=== PATIENT | female | born 1950 | race Caucasian/White ===

== ENCOUNTER 2019-10-31 07:54 | Outpatient (CLI) | payer MEDICARE, SELFPAY ==
[2019-10-31 09:21] LABS: Add Urine Microscopic? YES; Appearance Urine Clear (Clear); Bacteria Urine Trace /hpf; Bilirubin Urine Negative (Negative); Blood Urine Negative (Negative); Color Urine Yellow (Yellow); Glucose Urine UA Negative (Negative); Ketones Urine Negative (Negative); Leukocyte Esterase Ur Negative LEU/UL (Negative); Mucus Urine Rare /lpf; Nitrate Urine Negative (Negative); Protein Urine Negative (Negative); RBC Urine 0-2 /hpf (0-2); Specific Grav Ur 1.026 (1.001-1.035); Squamous Epithelial Cell Urine Many /hpf (Few); Urobilinogen Urine Negative mg/dL (<2.0); WBC Urine 0-3 /hpf
[2019-10-31 09:28] LABS: Prothrombin Time 12.8 Seconds (11.1-14.7)
[2019-10-31 09:29] LABS: Partial Thromboplastin Time 25.6 SECONDS (22.3-36.8)
[2019-10-31 09:39] LABS: Hemoglobin A1C 5.6 % (<5.7)
[2019-10-31 11:02] LABS: Urine Cotinine NEGATIVE
== END 2019-10-31 07:55 | disposition home or self-care (01) ==
LOC: ANHSURGERY 07:59
PROVIDERS: PCP Family Medicine; Visit Provider Orthopaedic Surgery
DX: M17.11 Unilateral primary osteoarthritis, right knee (principal)
CPT/HCPCS: 36415; 80307; 81001; 83036; 85610; 85730; 86850; 86900; 86901; 87081

== ENCOUNTER 2019-11-03 07:27 | Outpatient (CLI) | payer MEDICARE, SELFPAY ==
--- NOTE | 2019-11-03 | EST_ITS ---
Patient Info Name: Светлана Hernández Age: 69 years : 1950 Gender: Female Ht: 62 in Wt: 173 lbs BSA: 1.88 m2 Exam Date: 11/03/2019 9:13 AM Exam Location: [facility] Stress Patient Status: Outpatient Admit Date: 11/03/2019 Staff Ordering Physician: Leeanna Salinas MD Attending Provider: Leeanna Salinas MD Exercise Technologist: Cesilia David RD Exercise Physician: Nicolas Giordano DO Exam Type: CA stress dai w NM Study Info A regadenoson stress test was performed. Summary 1. 1. Negative lexiscan stress test for ischemic ST changes by ECG criteria. 2. 2. Baseline hypertension. 3. 3. Nuclear scan to follow and will be reported separately. Please correlate with it. 4. 4. Patient informed of the above results. Protocol: Lexiscan Stress ECG Details Stage: REST Duration (min): 8 min : 11 sec HR (bpm): 64 SBP (mmHg): 142 DBP (mmHg): 93 Stage: REST Duration (min): 23 min : 23 sec HR (bpm): 69 SBP (mmHg): 142 DBP (mmHg): 93 Stage: STAGE 1 Duration (min): 1 min : 0 sec HR (bpm): 103 SBP (mmHg): 153 DBP (mmHg): 106 Stage: RECOVERY Duration (min): 1 min : 0 sec HR (bpm): 106 SBP (mmHg): 162 DBP (mmHg): 103 Stage: RECOVERY Duration (min): 2 min : 0 sec HR (bpm): 94 SBP (mmHg): 162 DBP (mmHg): 103 Stage: RECOVERY Duration (min): 3 min : 0 sec HR (bpm): 96 SBP (mmHg): 142 DBP (mmHg): 84 Stage: RECOVERY Duration (min): 3 min : 4 sec HR (bpm): 97 SBP (mmHg): 142 DBP (mmHg): 84 Rest HR: 69 bpm Peak HR: 109 bpm Rest Sys BP: 142 mmHg Peak Sys BP: 162 mmHg Max Pred HR: 153 bpm % Max Pred HR: 71 % Target HR: 130 bpm Max RPP: 17,658 bpm*mmHg Termination Reason: Completed protocol Cardiac Symptoms: Weakness. Stomach discomfort. Total Time: 1 min : 0 sec Rest Perez BP: 93 mmHg Peak Perez BP: 103 mmHg Total Dose: 0.4 mg Resting ECG Sinus rhythm, RBBB, LPFB. Stress ECG No ST changes. Arrhythmias None. Report Signatures
--- NOTE | ~2019-11-03 | NM_ITS ---
EXAMINATION: NM dai stress w perfusion DATE: 11/03/2019 10:25 INDICATION: Shortness of breath and hyperlipidemia. Preoperative assessment. TECHNIQUE: Rest images were obtained following intravenous administration of 10.1 mCi Tc99m tetrofosm in (Myoview). The patient was infused intravenously with Lexiscan (Regadenoson). Then, 28.2 mCi Tc99m tetrofosmin (Myoview) was administered intravenously, and stress images were obtained. Data was francisco nstructed into short axis and horizontal and vertical long axis SPECT images. Gated SPECT images were also obtained. COMPARISON: None. FINDINGS: There is no definite reversible or fixed perfusion abnormality to suggest ischemia or infar ction. There is normal left ventricular chamber size, wall motion and ejection fraction. Left ventr icular ejection fraction measures >70%. IMPRESSION: 1. Normal myocardial perfusion at rest and during stress. 2. Left ventricular ejection fraction measuring >70%. Reviewed, dictated and finalized at location A.
== END 2019-11-03 07:28 | disposition home or self-care (01) ==
LOC: ANHCARD 07:31
PROVIDERS: PCP Family Medicine; Visit Provider Family Medicine
DX: E78.2 Mixed hyperlipidemia (principal); I10 Essential (primary) hypertension; R07.89 Other chest pain; Z01.812 Encounter for preprocedural laboratory examination
CPT/HCPCS: 78452; 93017; A9502; J2785

== ENCOUNTER 2019-11-07 01:03 | Outpatient (CLI) | payer MEDICARE, SELFPAY ==
[2019-11-07 19:20] LABS: SARS-CoV-2 RNA PCR Negative
== END 2019-11-07 01:04 | disposition home or self-care (01) ==
LOC: ANHCOVIDDT 01:03
PROVIDERS: PCP Family Medicine; Visit Provider Orthopaedic Surgery
DX: Z01.812 Encounter for preprocedural laboratory examination (principal); Z11.59 Encounter for screening for other viral diseases
CPT/HCPCS: 87635; C9803; U0003

== ENCOUNTER 2019-11-29 08:58 | Outpatient (CLI) | payer MEDICARE, SELFPAY ==
[2019-11-29 09:30] LABS: Add Urine Microscopic? YES; Appearance Urine Clear (Clear); Bilirubin Urine Negative (Negative); Blood Urine Negative (Negative); Color Urine Yellow (Yellow); Glucose Urine UA Negative (Negative); Ketones Urine Negative (Negative); Leukocyte Esterase Ur 2+ LEU/UL (Negative); Mucus Urine Rare /lpf; Nitrate Urine Negative (Negative); Protein Urine 1+ mg/dL (Negative); RBC Urine 0-2 /hpf (0-2); Specific Grav Ur 1.025 (1.001-1.035); Squamous Epithelial Cell Urine Many /hpf (Few); Urobilinogen Urine Negative mg/dL (<2.0)
== END 2019-11-29 08:59 | disposition home or self-care (01) ==
PROVIDERS: PCP Family Medicine; Visit Provider Orthopaedic Surgery
DX: M17.0 Bilateral primary osteoarthritis of knee (principal)
CPT/HCPCS: 36415; 81001; 86850; 86900; 86901

== ENCOUNTER 2019-12-05 00:24 | Outpatient (CLI) | payer MEDICARE, SELFPAY ==
[2019-12-05 20:23] LABS: SARS-CoV-2 RNA PCR Negative
== END 2019-12-05 00:25 | disposition home or self-care (01) ==
LOC: ANHCOVIDDT 00:24
PROVIDERS: PCP Family Medicine; Visit Provider Orthopaedic Surgery
DX: Z01.812 Encounter for preprocedural laboratory examination (principal); Z20.828 Contact with and (suspected) exposure to other viral communicable diseases
CPT/HCPCS: 87635; C9803; U0003

== ENCOUNTER 2019-12-07 01:35 | Day surgery (SDC) | payer MEDICARE, SELFPAY ==
[2019-10-31 08:16] VITALS: BMI 31.6
[2019-10-31 08:59] VITALS: BP 132/71; PULSE 65; RESP 18; TEMP 37.1; O2SAT 98
[2019-11-23 12:02] VITALS: BMI 31.6
--- NOTE | 2019-12-06 12:40 | WPDANESEPPF ---
Anes - Initial Pre Proc Eval Procedure: Operation Date: 12/07/19 13:00 Proposed Procedures p Right Total Knee Arthroplasty With Patella Resurfacing - Paulo Conklin MD Date/Time: 12/06/19 12:40 Surgeon: Paulo Conklin MD Pre Op Diagnosis: DJD Right Knee Patient Data Age: 69 Gender: F Height: 1.57 m Weight: 78.6 kg Last Vital Signs Temp 37.1 C 10/31/19 08:59 Pulse 65 10/31/19 08:59 Resp 18 10/31/19 08:59 BP 132/71 10/31/19 08:59 Pulse Ox 98 10/31/19 08:59 Allergies Allergy/AdvReac Type Severity Reaction Status Date / Time No Known Allergies Allergy Verified 12/07/19 09:35 Home Medications Medication Instructions Recorded Confirmed Type diclofenac sodium 75 mg 75 mg PO BID #180 tablet 03/16/19 12/07/19 Rx tablet,delayed release cholecalciferol (vitamin D3) 25 2,000 unit PO BID 03/23/19 12/07/19 History mcg (1,000 unit) capsule calcium carbonate 500 mg calcium 1,200 mg PO DAILY 04/18/19 12/07/19 History (1,250 mg) tablet glucosamine sulf dipotassium Cl 1 tablet PO BID tablet 04/18/19 12/07/19 History 750 mg-chondroitin sulf 600 mg tablet multivitamin 1 tablet PO DAILY 04/18/19 12/07/19 History vit C 250 mg-E 200 unit-zinc 40 1 tablet PO BID 04/18/19 12/07/19 History mg-copper 1 la-pdpyyl-butvrz capsule quinapril 20 mg tablet 20 mg PO DAILY #90 tablet 09/26/19 12/07/19 Rx acetaminophen [Tylenol Arthritis 650 mg PO HS PRN 10/31/19 12/02/19 History Pain] famotidine-Ca carb-mag hydrox 1 tablet PO DAILY 10/31/19 12/07/19 History [Pepcid Complete] rosuvastatin 40 mg PO HS 10/31/19 12/07/19 History pantoprazole 40 mg tablet,delayed 20 mg PO QAM #90 tablet 11/08/19 12/07/19 Rx release aspirin 325 mg PO HS 11/23/19 12/07/19 History Bactrim DS 800 mg-160 mg tablet 1 tablet PO Q12H #14 tablet NS 11/29/19 12/07/19 Rx ezetimibe 10 mg tablet 10 mg PO HS #90 tablet 12/05/19 12/07/19 Rx Patient hx anesthesia problems: none Family hx anesthesia problems: none [facility] Social History Social History Smoking status: Never smoker Second hand tobacco smoke exposure: No Smoking end date: 04/20/99 Additional smoking assessment comments: DENIES ANY FORM OF TOBACCO USE Alcohol intake: current Drinks per week: 2 Alcohol use details: VODKA Substance use: never Living arrangements: with family Spiritual care concerns: No Anes - Eval Final PreProcedure Day of Procedure 12/06/19 12:40 Patient weight: obese Heart: regular rate and rhythm Lungs: clear to auscultation and normal air movement Airway: Mallampati scale class II Neurological: alert and oriented Last oral intake: >/= 8 hours ASA classification: III Emergent: no Anesthetic plan: proceed Anesthesia type and monitoring: general ETT Informed Consent: The patient's anesthetic plan and its attendant risks and benefits were discussed with the patient/family/POA. Questions were solicited and answers provided to the satisfaction of the patient/family/POA.
[2019-12-07] VITALS (14 sets, daily range): BP systolic 100–124; BP diastolic 59–71; PULSE 59–78; RESP 12–18; TEMP 36–36.7; O2SAT 91–100
--- NOTE | ~2019-12-07 | XR_ITS ---
EXAMINATION: XR knee RT 2V DATE: 12/07/2019 12:52 INDICATION: Right total knee arthroplasty. Postop. TECHNIQUE: 2 views of right knee were obtained. COMPARISON: Right knee radiographs 10/07/2019 FINDINGS: There is a total right knee arthroplasty without patellar resurfacing in near-anatomic alig nment. No fracture. There is gas in the knee joint and soft tissues, consistent with recent surgery. Anterior skin mickey are noted. IMPRESSION: 1. Total right knee arthroplasty in near-anatomic alignment. Reviewed, dictated and finalized at location A.
--- NOTE | 2019-12-07 07:18 | WPDHPUPDATE1 ---
History and Physical Update Update Date/Time: 12/07/19 07:18 History and Physical has been reviewed, including an updated exam of the patient. There are NO changes in the patient's condition. Risks, benefits, and alternatives have been discussed and questions answered. Patient agrees to proceed with procedure.
[2019-12-07] MEDS: CELECOXIB 200 MG CAPSULE PO ×2 (09:20→17:24)
[2019-12-07] MEDS: ACETAMINOPHEN 500 MG TABLET 1000 MG PO ×2 (09:20→15:09)
[2019-12-07] MEDS: LACTATED RINGERS 1,000 ML 30 ML IV CONT ×2 (09:25→12:37)
[2019-12-07] MEDS: TRANEXAMIC ACID 1,000MG/ISO100 1,000 MG/100 ML BAG 200 MG IVPB (09:30)
--- NOTE | 2019-12-07 10:05 | WPDANESPNB ---
Anes - Peripheral Nerve Block Date/Time: 12/07/19 10:05 I have discussed with the patient/family/POA the placement of a peripheral nerve block for post-operative pain management, including associated risks, benefits, complications, and side effects. Alternative methods of post-operative analgesia were detailed. Questions were solicited and answers provided to the satisfaction of the patient/family/POA. Time-Out: A pre-procedural Time-Out was completed immediately before starting the procedure and confirmed: Patient Identification, Site, Procedure, Patient Position and the Availability of Requisite Equipment. Clinical Indications: Acute post-operative pain management requested by the operative surgeon. Nerve Block Insertion Note Anes-nerve block: adductor canal right Patient position: supine Skin prep: chlorhexidine Needle: 22 gauge, stimulating, insulated echogenic needle. Needle length: 80 mm Technique: ultrasound Technique comment: in plane Injectate: bupivacaine 0.5% with epi 5 mcg/ml (30cc) Observations: tolerated well Complications: none Procedure start time:: 1015 Procedure end time:: 1020
[2019-12-07] MEDS: ceFAZolin 2 GM/D5W 50 ML 2 GM/50 ML BAG IVPB ×2 (10:21→17:23)
[2019-12-07] MEDS: GENTAMICIN BONE CEMENT REFOBACIN 1 EACH TOPICAL (11:12)
[2019-12-07] MEDS: TRANEXAMIC ACID 1,000 MG/10 ML AMPUL 1000 MG IV PUSH (12:00)
--- NOTE | 2019-12-07 12:51 | SUR.PHASEI ---
1250 2 VIEWS OF XRAYS TAKEN OF RT KNEE.
--- NOTE | 2019-12-07 13:13 | PM.OP ---
Procedure Note - Brief Procedure Note - Brief Date of procedure: 12/07/19 Pre-op diagnosis: DJD Right Knee Post-op diagnosis: same Procedure performed: R TKA Anesthesia: GETA Surgeon: Paulo Conklin MD Estimated blood loss (mL): 100 Complications: No immediate complications Condition: stable Disposition: PACU
--- NOTE | 2019-12-07 14:20 | ADMGEN ---
This patient, Светлана Hernández, was admitted to Medical Room 258-. Patient/family oriented to hospital policies and general routines including ID bracelet, bed and alarms, visiting hours, pain management, procedures, bathroom and other care routines, personal items, smoking policy, room service/diet, and visiting hours. Valuables list has been completed. Information on how to activate the Rapid Response Team has been discussed. Patient/Family are encouraged to report perceived risks to care and to ask questions if they do not understand what they are told or what they should do.
[2019-12-07 15:06] LABS: Estimated CRCL calculation 65 ml/min; Estimated Glomerular Filt Rate > 60
[2019-12-07] MEDS: SODIUM CHLORIDE 0.9% IV 1,000 ML 125 ML IV CONT (15:07)
--- NOTE | 2019-12-07 15:40 | OP_ITS ---
DATE OF PROCEDURE: 12/07/2019 PREOPERATIVE DIAGNOSIS: Right knee severe degenerative joint disease. POSTOPERATIVE DIAGNOSIS: Right knee severe degenerative joint disease. PROCEDURE: Right total knee arthroplasty. ANESTHESIA: General. COMPLICATIONS: None. INDICATIONS: This is a 69-year-old female with severe tricompartmental DJD and severe pain. She was indicated for right total knee arthroplasty. DESCRIPTION OF PROCEDURE: The patient was taken to the operating room in stable condition and placed in supine position. General anesthesia was induced and then the right lower extremity was prepped and draped sterilely from the toes to the thigh. A midline skin incision made. Medial parapatellar arthrotomy was made. Patella was everted. She had severe arthrosis to the patella and the patellofemoral joint. She had exostoses, multiple, around the patella. The patella was too thin for an implant and this was quite noticeable at this point, so the patella was trimmed of its osteophytes and then everted and then an IM jessee was placed in the femur. A distal femoral cut was made at 5 degrees of valgus and then the knee was sized to a 60 knee and the cutting block was placed in line with Whitesides line and with the transepicondylar axis and anterior, posterior, and chamfer cuts were made to the femur. IM jessee was placed in tibia. A transtibial cut was made removing approximately 10 mm of bone from the high side. The tibia then was planed to form a smooth surface and then posterior osteophytes were removed from the femur. A #71 trial tibial component was placed in alignment with the 1/3rd medial aspect of the tibial tubercle and then a 65 femoral trial was placed and then a 10 CR poly trial was placed. The knee came out to full extension. The knee was eventually well balanced and had good varus valgus stress after ligament balancing was performed. There was good anterior-posterior stability, and the patella tracked without any tilt. There was no excessive rollback in flexion as well. The trial instrumentation was removed and then a Biomet 71 tibial component and a 65 femoral component both cemented into place and then a 10 CR poly component was locked into place. The knee came out to full extension until the cement was hardened, and then the knee was tested. Peripheral cement was removed from the implant and then the knee was found to have full extension. No abnormal tracking of the kneecap. There was good AP stability as well. There was good varus valgus stability as well. The patella tracked without any tilt. The tourniquet was deflated. The bleeders were cauterized. The deep fascial layers were approximated with #1 Vicryl suture subcutaneous tissues with 2-0 Vicryl and the skin with mickey. Wound was washed, placed sterile dressing. The patient was then extubated and sent to Recovery. Bryan I MT: Kellie
[2019-12-07] MEDS: DOCUSATE SODIUM 100 MG CAPSULE PO (17:24)
--- NOTE | 2019-12-07 18:18 | PM.IMCN ---
Assessment and Plan Assessment and plan (1) S/P total knee arthroplasty: Code(s): Z96.659 - Presence of unspecified artificial knee joint Status: Acute Assessment and Plan: postop care per Dr. Conklin. DVT prophylaxis per Dr. Conklin. The patient has an Constantine wrap to the right and bilateral SCDs. She is on a daily aspirin. Pain management per Dr. Conklin. She did have a nerve block and is not having any discomfort at this time. She has oxycodone as well. (2) Essential (primary) hypertension: Code(s): I10 - Essential (primary) hypertension Status: Chronic Assessment and Plan: Lisinopril oral has been continued . Please continue to monitor basic metabolic panel. (3) Mixed hyperlipidemia: Code(s): E78.2 - Mixed hyperlipidemia Status: Chronic Assessment and Plan: Continue with Crestor. And Zetia (4) Chronic GERD: Code(s): K21.9 - Gastro-esophageal reflux disease without esophagitis Status: Acute Assessment and Plan: Continue with Pepcid. HPI Data of Consult Consult date: 12/07/19 Requesting Physician: Paulo Conklin MD Primary Care Provider: Leeanna Salinas MD Consult Narrative Narrative: Светлана Hernández is a 69 year old female Who has severe tricompartmental degenerative joint disease in her right knee this would causing her severe pain. She has had injections in her shoulder before but never and her knee. She indicated for right total knee arthroplasty with patellar resurfacing. See the operative note. I reviewed a procedure note that was brief note. From Dr. Conklin 0 0 it stated that she had a right total knee arthroplasty. Had no complications. Her dressing to the right knee is dry and intact without any drainage. She is not having any discomfort at this time from what I could tell the patient had a nerve block. She has not been up out of bed yet. See operative report. This is a consultation from Dr. Conklin. I spent approximately 35 minutes with the patient. The date of service is 12/07/2019 Review of Systems Review of Systems: All systems reviewed & are unremarkable except as noted in HPI and below Constitutional: Constitutional: Reports as per HPI and Reports no additional constitutional complaints Eyes: Eyes: Reports as per HPI and Reports no additional eye complaints ENT: Reports system reviewed and no additional complaints, except as documented and Reports Normal hearing present Cardiovascular: Cardiovascular: Reports no additional cardiovascular complaints Respiratory: Respiratory: Reports no additional respiratory complaints and Reports no additional respiratory complaints Gastrointestinal: Gastrointestinal: Reports as per HPI and Reports no additional gastrointestinal complaints Musculoskeletal: Musculoskeletal: Reports no additional musculoskeletal complaints Integumentary/Breasts: Skin/Breast: Reports system reviewed and no additional complaints, except as docu and Reports as per HPI Neurologic: Reports system reviewed and no additional complaints, except as documented, Reports as per HPI and Reports Normal hearing present Psychiatric: Psychiatric: Reports no additional psychiatric complaints and Reports as per HPI Endocrine: Endocrine: Reports no additional endocrine complaints Hematologic/Lymphatic: Hematologic/Lymphatic: Reports no additional hematologic/lymphatic complaints Allergic/Immunologic: Allergic/Immunologic: Reports no additional allergic/immunologic complaints [facility] Past Medical History Medical History (Updated 12/07/19 @ 18:25 by Kate Watkins NP) Abnormal CT of the abdomen ventral hernia Abrasion of toe, left which turned into cellulitis and received approximately 2 weeks of antibiotics. Adverse drug effect Sandoval's esophagus without dysplasia Bilateral primary osteoarthritis of knee Chondromalacia patellae, unspecified knee Chronic GERD Colon polyp (~07/15/18) Dege
[2019-12-07] MEDS: EZETIMIBE 10 MG TABLET PO (20:39)
[2019-12-07] MEDS: ROSUVASTATIN 10 MG TABLET 40 MG PO (20:40)
[2019-12-07] MEDS: FAMOTIDINE 20 MG TABLET PO (20:41)
[2019-12-08] MEDS: ceFAZolin 2 GM/D5W 50 ML 2 GM/50 ML BAG IVPB ×2 (01:23→09:31)
[2019-12-08 03:56] VITALS: BP 100/65; PULSE 58; RESP 12; TEMP 37.1; O2SAT 99
[2019-12-08 05:50] LABS: Basophils Percent Auto 0.1 % (0.2-1.2); Eosinophils Percent Auto 0.1 % (0-4.4); Hematocrit 31.2 % (37.0-47.0); Hemoglobin 9.9 g/dL (12.0-15.0); Immature Granulocyte Absolute 0.03 K/mm3 (0.00-0.031); Immature Granulocyte Percent A 0.4 % (0-0.5); Lymphocytes Absolute Auto 0.63 K/mm3 (0.9-3.2); Lymphocytes Percent Auto 7.4 % (18.3-44.2); Mean Corpuscular HGB Conc 31.7 g/dl (32-36); Mean Corpuscular Hemoglobin 31.6 pg (26-34); Mean Corpuscular Volume 99.7 fl (80-100); Monocytes Absolute Auto 0.9 K/mm3 (0.1-0.6); Monocytes Percent Auto 10.4 % (2.6-8.5); Neutrophils Absolute Auto 6.9 K/mm3 (1.3-6.7); Neutrophils Percent Auto 81.6 % (45.5-73.1); Platelet Count Result 186 k/mm3 (150-375); Red Blood Count 3.13 M/mm3 (4.2-5.4); Red Cell Distribution Width 12.5 % (11.5-14.5); White Blood Count 8.5 K/mm3 (4.5-10.0)
[2019-12-08 06:06] LABS: Potassium 4.5 mmol/L (3.4-5.0)
[2019-12-08 06:08] LABS: Anion Gap 4 mmol/L (8-16); Blood Urea Nitrogen 12 mg/dL (7-17); Calcium 9.1 mg/dL (8.4-10.2); Carbon Dioxide 26 mmol/L (22-30); Chloride 107 mmol/L (98-107); Estimated CRCL calculation 65 ml/min; Estimated Glomerular Filt Rate > 60; Glucose 107 mg/dL (65-105); Sodium 137 mmol/L (137-145)
[2019-12-08] MEDS: ASPIRIN 325 MG ENTERIC TABLET 650 MG PO (08:17)
[2019-12-08] MEDS: CALCIUM CARBONATE (OSCAL) 500 MG TABLET 1000 MG PO (08:17)
[2019-12-08] MEDS: FAMOTIDINE 20 MG TABLET PO (08:18)
[2019-12-08] MEDS: lisinopriL 20 MG TABLET PO (08:18)
[2019-12-08] MEDS: DOCUSATE SODIUM 100 MG CAPSULE PO ×2 (08:18→16:59)
[2019-12-08] MEDS: CELECOXIB 200 MG CAPSULE PO ×2 (09:28→16:59)
--- NOTE | 2019-12-08 09:36 | PM.PNORT ---
Progress Note: A&P Assessment and Plan (1) S/P total knee arthroplasty: Qualifiers: Laterality: right Qualified Code(s): Z96.651 - Presence of right artificial knee joint Code(s): Z96.659 - Presence of unspecified artificial knee joint Status: Acute Assessment and Plan: POD #1: Right TKA Continue PT/OT. WBAT. Walker. Fall Risk. Continue DVT prophylaxis. Reinforced incentive spirometry use. SCDs. Ice knee. No pillows under knee. Continue pain control. Dispo: Home with home health, likely today, if tolerating PT/OT and medically cleared. Subjective Subjective Date/Time Seen: 12/08/19 0830 POD#1: RIGHT TKA No complaints. Working with PT/OT in the [facility]. Walking around the unit without difficulty. Wants to go home today. Review of Systems Review of Systems: All systems reviewed & are unremarkable except as noted in HPI and below Constitutional: Constitutional: Denies fever(s) and Denies headache(s) ENT: Denies headache(s) Cardiovascular: Cardiovascular: Denies chest pain, Denies diaphoresis, Denies palpitations and Denies dyspnea Respiratory: Respiratory: Denies dyspnea Gastrointestinal: Gastrointestinal: Denies abdominal pain, Denies constipation, Denies nausea and Denies vomiting Genitourinary: Genitourinary: Reports nocturia and Denies dysuria Musculoskeletal: Musculoskeletal: Reports arthralgias (Right Knee ) and Reports joint swelling (Right Knee ) Neurologic: Denies headache(s) Endocrine: Endocrine: Denies palpitations Exam Const: General: comfortable and no acute distress Resp: Effort & Inspection: normal respiratory effort Cardio: Rate: regular rate Rhythm: regular rhythm GI: GI Palp: Yes Soft to palpation, No Tenderness to palpation present (GI) and No Guarding due to palpation present (GI) Skin: Wounds: wounds noted Other: Incision c/d/i. No surrounding redness/warmth. No hematoma. Mild ecchymosis. No wound dehiscence Neuro: Cognition (Neuro): normal cognition Other: NV intact aside from block. Moves toes. Sensation intact to light touch. +ankle dorsiflexion/plantarflexion. 2+ pedal pulses. Extrem: Right upper extremity: normal to inspection, full ROM and normal capillary refill Left upper extremity: normal to inspection, full ROM and normal capillary refill Right lower extremity: normal to inspection, full ROM (ROM limited due to recent surgical intervention ) and knee Details: tenderness (diffuse, mild ) and swelling (diffuse, mild ) Left lower extremity: normal to inspection Psych: Mental Status: mental status grossly normal Objective Data Vital Signs Vital Signs: Vital Signs - 24 hr 12/07/19 12:37 12/07/19 12:50 12/07/19 13:05 Temperature 36.0 C L Pulse Rate 74 72 78 Respiratory Rate 14 12 12 Blood Pressure 111/59 L 114/70 112/71 Pulse Oximetry 99 98 100 12/07/19 13:20 12/07/19 13:35 12/07/19 13:50 Temperature Pulse Rate 73 70 69 Respiratory Rate 12 12 16 Blood Pressure 105/68 108/67 114/71 Pulse Oximetry 92 91 99 12/07/19 14:05 12/07/19 14:25 12/07/19 14:40 Temperature 36.2 C L 36.4 C L Pulse Rate 64 74 71 Respiratory Rate 12 18 16 Blood Pressure 110/71 122/70 122/70 Pulse Oximetry 97 98 97 12/07/19 15:10 12/07/19 16:10 12/07/19 19:56 Temperature 36.3 C L 36.4 C 36.7 C Pulse Rate 59 L 61 65 Respiratory Rate 18 16 18 Blood Pressure 116/71 111/59 L 105/60 Pulse Oximetry 96 96 98 12/07/19 23:11 12/08/19 03:56 Temperature 36.5 C 37.1 C Pulse Rate 64 58 L Respiratory Rate 16 12 Blood Pressure 100/65 100/65 Pulse Oximetry 96 99 Intake/Output Intake/Output: Intake & Output 12/05/19 12/06/19 12/07/19 12/08/19 23:59 23:59 23:59 23:59 Intake Total 1093 550 Output Total 550 2400 Balance 543 -1850 Meds/Results Medications: Active Medications Generic Name Dose Route Start Last Admin Trade Name Nury PRN Reason Stop Dose Admin Acetaminophen 1,000 mg 12/07/19 14:11 12/07/19 15
[2019-12-08 10:00] VITALS: BP 95/53; PULSE 61; RESP 14; TEMP 36.3; O2SAT 98
--- NOTE | 2019-12-08 11:42 | PM.IMPN ---
Progress Note: A&P Assessment and Plan (1) S/P total knee arthroplasty: Qualifiers: Laterality: right Qualified Code(s): Z96.651 - Presence of right artificial knee joint Code(s): Z96.659 - Presence of unspecified artificial knee joint Status: Acute Assessment and Plan: -----patient is doing well with physical therapy and is expected to discharge later today after she master's stairs. She is to continue with ortho is recommendations and physical therapy. (2) Essential (primary) hypertension: Code(s): I10 - Essential (primary) hypertension Status: Chronic Assessment and Plan: ------last blood pressure 100/65. No dizziness or lightheadedness. Continue lisinopril at discharge L (3) Mixed hyperlipidemia: Code(s): E78.2 - Mixed hyperlipidemia Status: Chronic Assessment and Plan: ------- Continue with Crestor and Zetia (4) Chronic GERD: Code(s): K21.9 - Gastro-esophageal reflux disease without esophagitis Status: Acute Assessment and Plan: ------ Continue with Pepcid. Time Spent With Patient Time with patient: 25 - 35 minutes Subjective Date/time seen: 12/08/19 11:42 Interval history: Pt is a 69-year-old female here for elective left knee replacement. Patient was seen today and doing well. She did work physical therapy without much pain. She is eating and drinking well. She has not had a bowel movement. She further denies chest pain, shortness of breath, calf pain, nausea, vomiting, fevers or chills. Review of Systems Review of Systems: All systems reviewed & are unremarkable except as noted in HPI and below Exam Narrative: Exam Narrative: General: Well developed well nourished patient in NAD HEENT: normocephalic Neck: supple Neuro: Alert and oriented x4 CV:RRR Resp:CTA Abd: Soft, non distended. No pain to palpation. Positive bowel sounds Extremities: Left leg with bandage and Constantine wrap applied. No excessive erythema, swelling, or bleeding noted in the area. Sensation and pulses intact. Objective Data Vital Signs Vital Signs: Vital Signs - 24 hr 12/07/19 12:37 12/07/19 12:50 12/07/19 13:05 Temperature 96.8 F L Pulse Rate 74 72 78 Respiratory Rate 14 12 12 Blood Pressure 111/59 L 114/70 112/71 Pulse Oximetry 99 98 100 12/07/19 13:20 12/07/19 13:35 12/07/19 13:50 Temperature Pulse Rate 73 70 69 Respiratory Rate 12 12 16 Blood Pressure 105/68 108/67 114/71 Pulse Oximetry 92 91 99 12/07/19 14:05 12/07/19 14:25 12/07/19 14:40 Temperature 97.1 F L 97.5 F L Pulse Rate 64 74 71 Respiratory Rate 12 18 16 Blood Pressure 110/71 122/70 122/70 Pulse Oximetry 97 98 97 12/07/19 15:10 12/07/19 16:10 12/07/19 19:56 Temperature 97.3 F L 97.6 F 98.1 F Pulse Rate 59 L 61 65 Respiratory Rate 18 16 18 Blood Pressure 116/71 111/59 L 105/60 Pulse Oximetry 96 96 98 12/07/19 23:11 12/08/19 03:56 Temperature 97.7 F 98.8 F Pulse Rate 64 58 L Respiratory Rate 16 12 Blood Pressure 100/65 100/65 Pulse Oximetry 96 99 Intake/Output Intake/Output: Intake & Output 12/05/19 12/06/19 12/07/19 12/08/19 23:59 23:59 23:59 23:59 Intake Total 1093 550 Output Total 550 2400 Balance 543 -1850 Meds/Results Medications: Active Medications Generic Name Dose Route Start Last Admin Trade Name Freq PRN Reason Stop Dose Admin Acetaminophen 1,000 mg 12/07/19 14:11 12/07/19 15:09 Tylenol Tablet PO 1,000 mg Q6H PRN Administration Mild Pain (1-3) Aspirin 650 mg 12/08/19 09:00 12/08/19 08:17 Aspirin Ec PO 650 mg DAILY DEBORA Administration Calcium Carbonate 1,000 mg 12/08/19 09:00 12/08/19 08:17 Oscal 500 Mg PO 1,000 mg DAILY DEBORA Administration Celecoxib 200 mg 12/07/19 17:00 12/08/19 09:28 Celebrex PO 200 mg BIDWM DEBORA Administration Diazepam 5 mg 12/07/19 14:11 Valium Po PO Q8H PRN Spasms Diphenhydramine
[2019-12-08 14:56] VITALS: BP 92/74; PULSE 70; RESP 14; TEMP 36.4; O2SAT 100
--- NOTE | 2019-12-08 16:09 | PM.DS ---
DS: Admitting Diagnosis Admitting Diagnosis Admitting Diagnosis: DJD Right Knee DS: Discharge Diagnosis Discharge Diagnosis (1) S/P total knee arthroplasty: Qualifiers: Laterality: right Qualified Code(s): Z96.651 - Presence of right artificial knee joint Code(s): Z96.659 - Presence of unspecified artificial knee joint Status: Acute Assessment and Plan: POD #1: Right TKA Continue PT/OT. WBAT. Walker. Fall Risk. Continue DVT prophylaxis. Reinforced incentive spirometry use. SCDs. Ice knee. No pillows under knee. Continue pain control. Dispo: Home with home health, likely today, if tolerating PT/OT and medically cleared. (2) Bilateral primary osteoarthritis of knee: Code(s): M17.0 - Bilateral primary osteoarthritis of knee Status: Acute DS: Summary Hospital Course Reason for hospitalization: Right TKA Hospital Course: 69-year-old female was admitted status post right total knee replacement for postoperative medical management, pain management and formal physical therapy. She progressed well with PT /OT and was cleared for discharge home. She was cleared from medical standpoint for discharge home as well. She will follow up in our office in 3 weeks. Status at Discharge Functional status at discharge: uses cane/walker Overall status at discharge: patient is progressing back to baseline Time Spent with Patient Time attestation: Total time spent providing and/or coordinating discharge services: Exam Const: General: comfortable and no acute distress Resp: Effort & Inspection: normal respiratory effort Cardio: Rate: regular rate Rhythm: regular rhythm GI: GI Palp: Yes Soft to palpation, No Tenderness to palpation present (GI) and No Guarding due to palpation present (GI) Skin: Wounds: wounds noted Other: Incision c/d/i. No surrounding redness/warmth. No hematoma. Mild ecchymosis. No wound dehiscence Neuro: Cognition (Neuro): normal cognition Other: NV intact aside from block. Moves toes. Sensation intact to light touch. +ankle dorsiflexion/plantarflexion. 2+ pedal pulses. Extrem: Right upper extremity: normal to inspection, full ROM and normal capillary refill Left upper extremity: normal to inspection, full ROM and normal capillary refill Right lower extremity: normal to inspection, full ROM (ROM limited due to recent surgical intervention ) and knee Left lower extremity: normal to inspection Psych: Mental Status: mental status grossly normal DS: Data Data Completed and Pending Labs on day of discharge: Labs from last 24 hours 12/08/19 12/08/19 05:43 05:43 WBC 8.5 RBC 3.13 L Hgb 9.9 L Hct 31.2 L MCV 99.7 MCH 31.6 MCHC 31.7 L RDW 12.5 Plt Count 186 MPV 9.0 Immature Gran % (Auto) 0.4 Neut % (Auto) 81.6 H Lymph % (Auto) 7.4 L [place] % (Auto) 10.4 H Eos % (Auto) 0.1 Baso % (Auto) 0.1 L Lymph # (Auto) 0.63 L [place] # (Auto) 0.9 H Eos # (Auto) 0.0 Baso # (Auto) 0.0 Abs Immat Gran (auto) 0.03 Absolute Neuts (auto) 6.9 H Absolute Nucleated RBC 0.0 Nucleated RBC % 0.0 Sodium 137 Potassium 4.5 Chloride 107 Carbon Dioxide 26 Anion Gap 4 L BUN 12 Creatinine 0.70 Estim Creat Clear Calc 65 Estimated GFR > 60 Glucose 107 H Calcium 9.1 Discharge Plan Discharge Patient Disposition: Home Health Service Discharge Instructions: Post Op Total Knee Replacement Instructions Dr. Paulo Conklin ?Your dressing will be changed prior to your discharge. You will be sent home with one additional dressing to be changed in 5 days by the home health RN. Your mickey will be removed on the 14th day after surgery and steri-strips will be placed. ?You may shower with your dressing but do not submerge in a bath tub. ?Do not drive or operate machinery until you are released by Dr. Conklin. ?Do not walk without a walker for any reason until you are released by Dr. Conklin. ?Continue to use yo
[2019-12-08] MEDS: ACETAMINOPHEN 500 MG TABLET 1000 MG PO (16:59)
== END 2019-12-08 18:14 | disposition home health service (06) ==
LOC: ANHSURGERY 08:42 → ANH2MED 14:19
PROVIDERS: PCP Family Medicine; Visit Provider Orthopaedic Surgery
PROC: (CPT 27447; principal; 2019-12-07 10:30)
DX: M17.11 Unilateral primary osteoarthritis, right knee (principal); G89.18 Other acute postprocedural pain; I10 Essential (primary) hypertension; E78.2 Mixed hyperlipidemia; K21.9 Gastro-esophageal reflux disease without esophagitis; K76.0 Fatty (change of) liver, not elsewhere classified; Z79.82 Long term (current) use of aspirin; E66.9 Obesity, unspecified; Z68.31 Body mass index [BMI] 31.0-31.9, adult
CPT/HCPCS: 27447; 64447; 36415; 73560; 80048; 82565; 85025; 97110; 97116; 97161; 97165; A9270; C1713; C1776; J0171; J0690; J1100; J1170; J2250; J2270; J2370; J2405; J2704; J2795; J3010; J7030; J7120

== ENCOUNTER 2020-01-27 07:47 | Outpatient (CLI) | payer MEDICARE, SELFPAY ==
[2020-01-27 09:18] LABS: Basophils Percent Auto 0.3 % (0.2-1.2); Eosinophils Absolute Auto 0.1 K/mm3 (0-0.3); Eosinophils Percent Auto 1.1 % (0-4.4); Hematocrit 40.1 % (37.0-47.0); Hemoglobin 12.5 g/dL (12.0-15.0); Immature Granulocyte Absolute 0.03 K/mm3 (0.00-0.031); Immature Granulocyte Percent A 0.3 % (0-0.5); Lymphocytes Absolute Auto 0.64 K/mm3 (0.9-3.2); Lymphocytes Percent Auto 7.1 % (18.3-44.2); Mean Corpuscular HGB Conc 31.2 g/dl (32-36); Mean Corpuscular Hemoglobin 30.6 pg (26-34); Mean Corpuscular Volume 98.3 fl (80-100); Mean Platelet Volume 9.4 fl (7.4-10.4); Monocytes Absolute Auto 0.8 K/mm3 (0.1-0.6); Monocytes Percent Auto 8.4 % (2.6-8.5); Neutrophils Absolute Auto 7.4 K/mm3 (1.3-6.7); Neutrophils Percent Auto 82.8 % (45.5-73.1); Platelet Count Result 240 k/mm3 (150-375); Red Blood Count 4.08 M/mm3 (4.2-5.4)
[2020-01-27 09:23] LABS: Add Urine Microscopic? YES; Appearance Urine Clear (Clear); Bilirubin Urine Negative (Negative); Blood Urine Negative (Negative); Color Urine Yellow (Yellow); Glucose Urine UA Negative (Negative); Ketones Urine Negative (Negative); Leukocyte Esterase Ur Negative LEU/UL (Negative); Mucus Urine Few /lpf; Nitrate Urine Negative (Negative); Protein Urine Negative (Negative); RBC Urine 0-2 /hpf (0-2); Specific Grav Ur 1.019 (1.001-1.035); Squamous Epithelial Cell Urine Rare /hpf (Few); Urobilinogen Urine Negative mg/dL (<2.0)
[2020-01-27 09:24] LABS: Albumin Level 4.4 g/dL (3.5-5.1)
[2020-01-27 09:27] LABS: Prothrombin Time 13.3 Seconds (11.1-14.7)
[2020-01-27 09:28] LABS: Partial Thromboplastin Time 27.6 SECONDS (22.3-36.8)
[2020-01-27 09:49] LABS: Urine Cotinine NEGATIVE
== END 2020-01-27 07:48 | disposition home or self-care (01) ==
PROVIDERS: PCP Family Medicine; Visit Provider Orthopaedic Surgery
DX: Z01.818 Encounter for other preprocedural examination (principal); M17.12 Unilateral primary osteoarthritis, left knee; I10 Essential (primary) hypertension; E78.2 Mixed hyperlipidemia
CPT/HCPCS: 36415; 80307; 81001; 82040; 83036; 85025; 85610; 85730; 86850; 86900; 86901; 87081

== ENCOUNTER 2020-01-28 00:54 | Outpatient (CLI) | payer MEDICARE, SELFPAY ==
[2020-01-28 18:59] LABS: SARS-CoV-2 RNA PCR Negative
== END 2020-01-28 00:55 | disposition home or self-care (01) ==
LOC: ANHCOVIDDT 00:55
PROVIDERS: PCP Family Medicine; Visit Provider Orthopaedic Surgery
DX: Z01.812 Encounter for preprocedural laboratory examination (principal); Z20.828 Contact with and (suspected) exposure to other viral communicable diseases
CPT/HCPCS: 87635; C9803; U0003

== ENCOUNTER 2020-02-01 16:08 | Observation (INO) | payer MEDICARE, SELFPAY ==
[2020-01-27 07:43] VITALS: BP 134/69; PULSE 73; RESP 16; TEMP 36.3; O2SAT 97
[2020-01-27 08:06] VITALS: BMI 30.2
[2020-01-31] VITALS (12 sets, daily range): BP systolic 106–139; BP diastolic 58–80; PULSE 69–85; RESP 14–18; TEMP 36.1–37; O2SAT 95–100
[2020-01-31] MEDS: LACTATED RINGERS 1,000 ML 30 ML IV CONT ×2 (10:00→14:09)
[2020-01-31] MEDS: KETOROLAC 15 MG/ML VIAL (*BKC) IV PUSH (10:11)
[2020-01-31] MEDS: ACETAMINOPHEN 500 MG TABLET 1000 MG PO (10:11)
[2020-01-31] MEDS: TRANEXAMIC ACID 1,000MG/ISO100 1,000 MG/100 ML BAG 200 MG IVPB (10:12)
--- NOTE | 2020-01-31 10:37 | WPDANESEPPF ---
Anes - Initial Pre Proc Eval Procedure: Operation Date: 01/31/20 11:30 Proposed Procedures p Left Total Knee Arthroplasty - Paulo Conklin MD Date/Time: 01/31/20 10:37 Surgeon: Paulo Conklin MD Pre Op Diagnosis: left knee OA Patient Data Age: 70 Gender: F Height: 5 ft 3 in Weight: 77.1 kg Last Vital Signs Temp 36.3 C L 01/27/20 07:43 Pulse 73 01/27/20 07:43 Resp 16 01/27/20 07:43 BP 134/69 01/27/20 07:43 Pulse Ox 97 01/27/20 07:43 Allergies Allergy/AdvReac Type Severity Reaction Status Date / Time No Known Allergies Allergy Verified 01/31/20 09:45 Home Medications Medication Instructions Recorded Confirmed Type cholecalciferol (vitamin D3) 25 2,000 unit PO DAILY 03/23/19 01/31/20 History mcg (1,000 unit) capsule multivitamin 1 tablet PO DAILY 04/18/19 01/31/20 History vit C 250 mg-E 200 unit-zinc 40 1 tablet PO BID 04/18/19 01/31/20 History mg-copper 1 zt-[id number]-uprxku capsule Pepcid Complete 1 tablet PO DAILY 10/31/19 01/31/20 History rosuvastatin 40 mg PO HS 10/31/19 01/31/20 History pantoprazole 40 mg tablet,delayed 20 mg PO QAM #90 tablet 11/08/19 01/31/20 Rx release ezetimibe 10 mg tablet 10 mg PO HS #90 tablet 12/05/19 01/31/20 Rx hydrocodone 7.5 mg-acetaminophen 1 tablet PO Q8H PRN #30 tablet 01/13/20 01/31/20 Rx 325 mg tablet aspirin 325 mg PO DAILY 01/27/20 01/31/20 History calcium carbonate [Calcium 600] 1,200 mg PO DAILY 01/27/20 01/31/20 History diclofenac sodium 75 mg PO BID 01/27/20 01/31/20 History fiber 1 cap PO BID 01/27/20 01/31/20 History glucosamine sulfate [Glucosamine] 750 mg PO BID 01/27/20 01/31/20 History quinapril 20 mg PO QAM 01/27/20 01/31/20 History vit C,E-Zl-jiwwi-lutein-zeaxan 1 tablet PO BID 01/27/20 01/31/20 History [PreserVision AREDS-2] Patient hx anesthesia problems: none Family hx anesthesia problems: none [facility] Past Medical History Medical History Abnormal CT of the abdomen ventral hernia Abrasion of toe, left which turned into cellulitis and received approximately 2 weeks of antibiotics. 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 repeat in 6 months unchanged. no further surveillance needed) Mammogram normal (~10/01/18) Mixed hyperlipidemia Osteopenia Rotator cuff syndrome of right shoulder Ventral hernia Surgical History Surgical History H/O colonoscopy with polypectomy H/O eye surgery (~10/28/19) History of carpal tunnel release (~07/26/13) History of colonoscopy (~05/15/14) repeat 5-7 years History of detached retina repair History of hysterectomy (~2001) History of tonsillectomy (~1967) S/P total knee arthroplasty Family History Family History Mother Family history of elevated blood lipids Diabetes mellitus Hypertension Patient's mother is Father Family history of cardiovascular disease Cardiomyopathy Heart muscle disorder caused by another medical condition Grandparent Acute myocardial infarction Daughter Thyroid cancer Social History Social History Social History: she lives with her . She is lifelong nonsmoker. Her is a durable power erisa attorney for healthcare. She is retired from [email or web address]. she has 2 children. She desires to be a full code. No alcohol no tobacco or illicit drugs. Smoking status:
--- NOTE | 2020-01-31 11:52 | WPDHPUPDATE1 ---
History and Physical Update Update Date/Time: 01/31/20 11:52 History and Physical has been reviewed, including an updated exam of the patient. There are NO changes in the patient's condition. Risks, benefits, and alternatives have been discussed and questions answered. Patient agrees to proceed with procedure.
--- NOTE | 2020-01-31 11:54 | WPDANESPNB ---
Anes - Peripheral Nerve Block Date/Time: 01/31/20 11:54 I have discussed with the patient/family/POA the placement of a peripheral nerve block for post-operative pain management, including associated risks, benefits, complications, and side effects. Alternative methods of post-operative analgesia were detailed. Questions were solicited and answers provided to the satisfaction of the patient/family/POA. Time-Out: A pre-procedural Time-Out was completed immediately before starting the procedure and confirmed: Patient Identification, Site, Procedure, Patient Position and the Availability of Requisite Equipment. Clinical Indications: Acute post-operative pain management requested by the operative surgeon. Nerve Block Insertion Note Anes-nerve block: femoral left Patient position: supine Skin prep: chlorhexidine Needle: 22 gauge, stimulating, insulated echogenic needle. Needle length: 50 mm Technique: nerve stimulation lost at (mA) (0.5) Injectate: bupivacaine 0.5% with epi 5 mcg/ml (30) and dexamethasone (mg) (8) Observations: tolerated well Complications: none Procedure start time:: 1147 Procedure end time:: 1153
[2020-01-31] MEDS: ceFAZolin 2 GM/D5W 50 ML 2 GM/50 ML BAG IVPB ×2 (11:58→20:28)
[2020-01-31] MEDS: GENTAMICIN BONE CEMENT REFOBACIN 1 EACH TOPICAL (12:58)
--- NOTE | 2020-01-31 14:09 | PM.PROC ---
Procedure Note - Detailed Date of procedure: 01/31/20 Pre-op diagnosis: left knee OA Post-op diagnosis: same Procedure performed: L TKA Description of procedure: THE LEFT KNEE WAS PREPPED AND DRAPED IN THE STERILE FASHION. A MIDLINE SKIN INCISION WAS MADE. A MEDIAL PARAPATELLAR ARTHROTOMY WAS MADE. THE PATELLA WAS EVERTED. THERE WAS TRICOMPARTMENT DJD. THERE WAS MINIMAL PATELLA DJD. AN INTRAMEDULLARY SLOANE WAS PLACED IN THE FEMUR. A DISTAL FEMORAL CUT WAS MADE IN 5 DEGREES OF VALGUS REMOVING APPROXIMATELY 9 MM OF BONE FROM THE DISTAL FEMUR. THE FEMUR WAS SIZED TO 62.5. A 62.5 FEMORAL CUTTING BLOCK WAS PLACED IN 3 DEGREES OF EXTERNAL ROTATION AND IN ALIGNMENT WITH NANDO'S LINE AND THE TRANSEPICONDYLAR AXIS. ANTERIOR POSTERIOR AND CHAMFER CUTS WERE MADE. THE CUTS WERE EXCELLENT. NEXT AN INTRAMEDULLARY CUTTING GUIDE WAS PLACED IN THE TIBIA. A TRANS TIBIAL CUT WAS MADE ALONG THE LONG AXIS OF THE TIBIA. APPROXIMATELY 10 MM OF BONE WAS REMOVED FROM THE HIGH SIDE OF THE TIBIA. THE TIBIA WAS THEN PLANED TO A SMOOTH SURFACE. POSTERIOR FEMORAL OSTEOPHYTES WERE REMOVED FROM THE FEMORAL CONDYLES. A 71 TIBIAL TRIAL WAS PLACED IN ALIGNMENT WITH THE 1/3 MEDIAL ASPECT OF THE TIBIAL TUBERCLE. THEN A 62.5 FEMORAL TRIAL COMPONENT WAS PLACED. BOTH HAD EXCELLENT FITS. EVENTUALLY A 10 mm CR POLYETHYLENE TRIAL COMPONENT WAS PLACED. THE KNEE WAS TAKEN THROUGH A RANGE OF MOTION. THE KNEE CAME OUT TO FULL EXTENSION. THERE WAS NO ABNORMAL TILT TO THE PATELLA. THERE WAS GOOD A/P AND VARUS/VALGUS STABILITY. THERE WAS NO EXCESSIVE ROLL BACK WITH FLEXION. THE TRIAL COMPONENTS WERE REMOVED. THEN A 62.5 FEMORAL COMPONENT AND 71 TIBIAL COMPONENT WITH A 11 mm CR POLYETHYLENE COMPONENT WERE CEMENTED INTO PLACE. ONCE THE CEMENT WAS HARD THE KNEE WAS TAKEN THROUGH A ROM AGAIN AND FOUND TO BE STABLE WITH NO PATELLA TILT NO EXCESSIVE ROLL BACK WITH FLEXION AND GOOD STABILITY WITH COMPLETE AND FULL EXTENSION. THE KNEE WAS IRRIGATED WITH STERILE BETADINE AND WATER FOR ABOUT 3 MINUTES. THE BLEEDERS WERE CAUTERIZED. THE ARTHROTOMY WAS REPAIRED WITH NUMBER 1 VICRYL. THE SUB CUTANEOUS LAYER WITH 2-0 VICRYL AND THE SKIN WITH MARISA. THE WOUND WAS WASHED AND A STERILE DRESSING WAS APPLIED. PATIENT WAS EXTUBATED. Anesthesia: GETA Surgeon: Paulo Conklin MD Estimated blood loss (mL): 100 Drains: No Complications: No immediate complications Condition: stable Disposition: PACU
[2020-01-31 15:54] LABS: Estimated CRCL calculation 75 ml/min; Estimated Glomerular Filt Rate > 60
[2020-01-31] MEDS: DOCUSATE SODIUM 100 MG CAPSULE PO (16:19)
[2020-01-31] MEDS: CELECOXIB 200 MG CAPSULE PO (16:20)
--- NOTE | 2020-01-31 18:17 | PM.IMCN ---
Assessment and Plan Assessment and plan (1) Bilateral primary osteoarthritis of knee: Code(s): M17.0 - Bilateral primary osteoarthritis of knee Status: Acute Assessment and Plan: Patient with bilateral osteoarthritis of the knees now status post bilateral total knee arthroplasty. She tolerated right total knee arthroplasty well with only some mild stiffness. She returns and has now undergone a left total knee arthroplasty. She appears to have tolerated this procedure well. Continue PT and OT. Continue current pain management. (2) S/P total knee arthroplasty: Qualifiers: Laterality: right Qualified Code(s): Z96.651 - Presence of right artificial knee joint Code(s): Z96.659 - Presence of unspecified artificial knee joint Status: Acute Assessment and Plan: As above. (3) Essential (primary) hypertension: Code(s): I10 - Essential (primary) hypertension Status: Chronic Assessment and Plan: Patient blood pressure well controlled today. Lisinopril has already been resumed. She did have some soft blood pressures last admission so will have to monitor closely. Check renal panel in the morning. (4) Mixed hyperlipidemia: Code(s): E78.2 - Mixed hyperlipidemia Status: Chronic Assessment and Plan: No LFTs listed in the chart. She has been resumed on her Zetia and Crestor. Suspect the stiffness in her right knee is related to her recent surgery and not from myalgias. Will continue to monitor. (5) Chronic GERD: Code(s): K21.9 - Gastro-esophageal reflux disease without esophagitis Status: Acute Assessment and Plan: Stable. Pepcid has been continued. Continue to monitor for worsening symptoms. (6) DVT prophylaxis: Code(s): Z29.9 - Encounter for prophylactic measures, unspecified Status: Acute Assessment and Plan: DVT prophylaxis per Orthopedic protocols. Additional Plan Thank you so much for allowing me to be part of this patient's care. Will continue to follow along with you. HPI Data of Consult Consult date: 02/01/20 Requesting Physician: Paulo Conklin MD Primary Care Provider: Leeanna Salinas MD Consult Narrative Narrative: Светлана Hernández is a 70 year old female with HTN and osteoarthritis who is here for scheduled left total knee replacement. Patient has been having severe bilateral knee pain. Patient has failed conservative management. She had a negative stress test in October. She was admitted in November of this year and underwent a right total knee arthroplasty. She had good results with the exception that it still feels stiff. She returns for left total knee replacement which she had done earlier today. COVID screen was negative on January 27. Pain is well controlled currently. She was up to the chair earlier today. Right knee feels better today and this may be related to manipulation in the OR. She denies any headache, chest pain, palpitations, shortness of breath, cough, dysgeusia, anosmia, nausea, vomiting, abdominal pain, diarrhea, dysuria, hematuria, numbness/tingling /weakness in her extremities. overall she has been feeling well since her last hospitalization. No other complaints. Blood pressure and cholesterol have been well controlled with her current medications prior to admission. Review of Systems Review of Systems: All systems reviewed & are unremarkable except as noted in HPI and below PMFSH Past Medical History Medical History (Updated 01/31/20 @ 18:21 by Sandoval Hardin MD) Abnormal CT of the abdomen ventral hernia Abrasion of toe, left which turned into cellulitis and received approximately 2 weeks of antibiotics. Adverse drug effect Sandoval's esophagus without dysplasia Bilateral primary osteoarthritis of knee Chondromalacia patellae, unspecified knee Chronic GERD Colon polyp (~07/15/18) Degenerative joint disease of
[2020-01-31] MEDS: calcium polycarbophiL 625 MG TABLET PO (18:25)
[2020-01-31] MEDS: OPTI-GEN TAB 1 TABLET PO (18:25)
[2020-01-31] MEDS: ROSUVASTATIN 10 MG TABLET 40 MG PO (20:25)
[2020-01-31] MEDS: FAMOTIDINE 20 MG TABLET PO (20:28)
[2020-01-31] MEDS: oxyCODONE/ACETAMINOPHEN (*CRX) 5-325 MG TABLET 1 TABLET PO (20:28)
[2020-01-31] MEDS: EZETIMIBE 10 MG TABLET PO (20:30)
--- NOTE | ~2020-02-01 | XR_ITS ---
EXAMINATION: XR knee LT 2V DATE: 01/31/2020 14:32 INDICATION: Left knee arthroplasty. Postop. TECHNIQUE: 2 views of left knee were obtained. COMPARISON: Left knee radiograph 10/07/2019 FINDINGS: There is a total left knee arthroplasty in near-anatomic alignment without patellar resurfa cing. No fracture. There is gas in the knee joint and soft tissues, consistent with recent surgery. A nterior skin mickey are noted. IMPRESSION: 1. Total left knee arthroplasty in near-anatomic alignment. Reviewed, dictated and finalized at location A.
[2020-02-01 02:00] VITALS: BP 114/69; PULSE 67; RESP 16; TEMP 36.3; O2SAT 99
[2020-02-01] MEDS: ceFAZolin 2 GM/D5W 50 ML 2 GM/50 ML BAG IVPB ×2 (04:01→12:04)
--- NOTE | 2020-02-01 04:18 | PC.NURSE ---
At 0200 after taking pt to bathroom with chantelle paul pt was insistent that a pillow be placed under Lt. Knee explained that the pillow should not be behind knee and pt repositioned pillow behind knee anyway.
[2020-02-01 06:00] VITALS: BP 127/70; PULSE 66; RESP 16; TEMP 36.3; O2SAT 99
[2020-02-01 06:05] LABS: Basophils Percent Auto 0.1 % (0.2-1.2); Hematocrit 31.7 % (37.0-47.0); Immature Granulocyte Absolute 0.05 K/mm3 (0.00-0.031); Immature Granulocyte Percent A 0.5 % (0-0.5); Lymphocytes Absolute Auto 0.45 K/mm3 (0.9-3.2); Lymphocytes Percent Auto 4.1 % (18.3-44.2); Mean Corpuscular HGB Conc 31.5 g/dl (32-36); Mean Corpuscular Hemoglobin 30.3 pg (26-34); Mean Corpuscular Volume 96.1 fl (80-100); Mean Platelet Volume 9.8 fl (7.4-10.4); Monocytes Absolute Auto 0.7 K/mm3 (0.1-0.6); Monocytes Percent Auto 6.6 % (2.6-8.5); Neutrophils Absolute Auto 9.8 K/mm3 (1.3-6.7); Neutrophils Percent Auto 88.7 % (45.5-73.1); Platelet Count Result 220 k/mm3 (150-375); Red Cell Distribution Width 13.2 % (11.5-14.5)
[2020-02-01 06:12] LABS: Alanine Aminotransferase 19 U/L (4-35); Albumin Level 3.4 g/dL (3.5-5.1); Alkaline Phosphatase 87 U/L (38-126); Anion Gap 5 mmol/L (8-16); Aspartate Amino Transferase 24 U/L (14-36); Bilirubin,Total 0.3 mg/dL (0.2-1.3); Blood Urea Nitrogen 15 mg/dL (7-17); Calcium 9.2 mg/dL (8.4-10.2); Carbon Dioxide 28 mmol/L (22-30); Chloride 106 mmol/L (98-107); Estimated CRCL calculation 75 ml/min; Estimated Glomerular Filt Rate > 60; Glucose 137 mg/dL (65-105); Potassium 4.2 mmol/L (3.4-5.0); Sodium 139 mmol/L (137-145)
--- NOTE | 2020-02-01 07:56 | WPDANESPN ---
Anes - Prog Note Post-Op Date/Time: 02/01/20 07:56 Cardiovascular status: normal Respiratory status: normal Airway patency: baseline Mental status: baseline Post-Op hydration status: normal Vital Signs: Last Vital Signs Temp 36.3 C L 02/01/20 06:00 Pulse 66 02/01/20 06:00 Resp 16 02/01/20 06:00 BP 127/70 02/01/20 06:00 Pulse Ox 99 02/01/20 06:00 Pain Score (VAS): 0 I/O: Intake & Output 01/31/20 01/31/20 02/01/20 15:59 23:59 07:59 Intake Total 350 290 50 Output Total 300 Balance 350 -10 50 Laboratory Tests 02/01/20 05:31 02/01/20 05:31 01/31/20 02/01/20 02/01/20 15:38 05:31 05:31 WBC 11.0 H RBC 3.30 L Hgb 10.0 L Hct 31.7 L MCV 96.1 MCH 30.3 MCHC 31.5 L RDW 13.2 Plt Count 220 MPV 9.8 Immature Gran % (Auto) 0.5 Neut % (Auto) 88.7 H Lymph % (Auto) 4.1 L [place] % (Auto) 6.6 Eos % (Auto) 0.0 Baso % (Auto) 0.1 L Lymph # (Auto) 0.45 L [place] # (Auto) 0.7 H Eos # (Auto) 0.0 Baso # (Auto) 0.0 Abs Immat Gran (auto) 0.05 H Absolute Neuts (auto) 9.8 H Absolute Nucleated RBC 0.0 Nucleated RBC % 0.0 Sodium 139 Potassium 4.2 Chloride 106 Carbon Dioxide 28 Anion Gap 5 L BUN 15 Creatinine 0.60 L 0.60 L Estim Creat Clear Calc 75 75 Estimated GFR > 60 > 60 Glucose 137 H Calcium 9.2 Total Bilirubin 0.3 Direct Bilirubin 0.0 AST 24 ALT 19 Alkaline Phosphatase 87 Total Protein 6.0 L Albumin 3.4 L Post-procedural complaints: none Patient Feedback: Patient satisfied with anesthetic care.
[2020-02-01] MEDS: ASPIRIN 325 MG ENTERIC TABLET PO (08:50)
[2020-02-01] MEDS: CELECOXIB 200 MG CAPSULE PO ×2 (08:50→17:24)
[2020-02-01] MEDS: FAMOTIDINE 20 MG TABLET PO ×2 (08:51→21:36)
[2020-02-01] MEDS: lisinopriL 20 MG TABLET PO (08:51)
[2020-02-01] MEDS: CALCIUM CARBONATE (OSCAL) 500 MG TABLET 1000 MG PO (08:52)
[2020-02-01] MEDS: DOCUSATE SODIUM 100 MG CAPSULE PO ×2 (08:53→17:24)
[2020-02-01] MEDS: OPTI-GEN TAB 1 TABLET PO ×2 (08:53→17:25)
[2020-02-01] MEDS: calcium polycarbophiL 625 MG TABLET PO ×2 (08:58→17:25)
[2020-02-01 10:00] VITALS: BP 108/51; PULSE 78; RESP 15; TEMP 36.8; O2SAT 98
[2020-02-01] MEDS: oxyCODONE/ACETAMINOPHEN (*CRX) 5-325 MG TABLET 1 TABLET PO ×2 (13:22→21:37)
[2020-02-01 14:00] VITALS: BP 127/66; PULSE 77; RESP 15; TEMP 36.6; O2SAT 97
--- NOTE | 2020-02-01 14:14 | PM.IMPN ---
Progress Note: A&P Assessment and Plan (1) Bilateral primary osteoarthritis of knee: Code(s): M17.0 - Bilateral primary osteoarthritis of knee Status: Acute Assessment and Plan: Patient with bilateral osteoarthritis of the knees now status post bilateral total knee arthroplasty. She tolerated right total knee arthroplasty well with only some mild stiffness. She returns and is now POD #1 from a left total knee arthroplasty. She appears to have tolerated this procedure well. Continue PT and OT. Continue current pain management. (2) S/P total knee arthroplasty: Qualifiers: Laterality: right Qualified Code(s): Z96.651 - Presence of right artificial knee joint Code(s): Z96.659 - Presence of unspecified artificial knee joint Status: Acute Assessment and Plan: As above. (3) Essential (primary) hypertension: Code(s): I10 - Essential (primary) hypertension Status: Chronic Assessment and Plan: Patient blood pressure reviewed on 01/31 and is well controlled today. Lisinopril has been resumed. Renal function okay. Continue to monitor BP. (4) Mixed hyperlipidemia: Code(s): E78.2 - Mixed hyperlipidemia Status: Chronic Assessment and Plan: LFTs normal. Continue her Zetia and Crestor. (5) Chronic GERD: Code(s): K21.9 - Gastro-esophageal reflux disease without esophagitis Status: Acute Assessment and Plan: Stable. Continue Pepcid. Continue to monitor for worsening symptoms. (6) DVT prophylaxis: Code(s): Z29.9 - Encounter for prophylactic measures, unspecified Status: Acute Assessment and Plan: DVT prophylaxis per Orthopedic protocols. Subjective Date/time seen: 02/01/20 14:14 Interval history: Date of service: 01/31 70yo female with HTN and HLD here for elective left TKA. Left leg is buckling at times when she is walking to the BR. She has been up most of the day today. She denies CP or SOB. No n/v. Pain well controlled and just now asked for her first narcotic pill. Exam Narrative: Exam Narrative: AF 98.3 108/51 78 15 98% ra Gen - NARD Chest - lungs are clear to auscultation bilaterally. CV - heart was regular rate and rhythm. S1-S2. . Abd - abdomen was soft. Nontender. Nondistended. Positive bowel sounds. Ext - left LE was LEORA wrapped from mid thigh to foot. mild RLE edema Psych - normal mood and affect. Patient is pleasant and cooperative. Skin - warm and dry. No rashes noted. Objective Data Vital Signs Vital Signs: Vital Signs - 24 hr 01/31/20 14:15 01/31/20 14:30 01/31/20 14:45 Temperature Pulse Rate 82 85 78 Respiratory Rate 14 14 17 Blood Pressure 117/64 106/80 112/69 Pulse Oximetry 99 95 99 01/31/20 14:56 01/31/20 15:05 01/31/20 15:20 Temperature 97.2 F L 97.2 F L Pulse Rate 76 70 74 Respiratory Rate 14 16 16 Blood Pressure 117/64 132/78 128/69 Pulse Oximetry 99 100 100 01/31/20 15:30 01/31/20 16:50 01/31/20 20:00 Temperature 97.5 F L 97.3 F L Pulse Rate 69 77 76 Respiratory Rate 18 18 16 Blood Pressure 123/69 139/76 Pulse Oximetry 100 99 97 01/31/20 21:52 02/01/20 02:00 02/01/20 06:00 Temperature 97.1 F L 97.4 F L 97.3 F L Pulse Rate 76 67 66 Respiratory Rate 16 16 16 Blood Pressure 115/58 L 114/69 127/70 Pulse Oximetry 97 99 99 02/01/20 10:00 Temperature 98.3 F Pulse Rate 78 Respiratory Rate 15 Blood Pressure 108/51 L Pulse Oximetry 98 Intake/Output Intake/Output: Intake & Output 01/29/20 01/30/20 01/31/20 02/01/20 23:59 23:59 23:59 23:59 Intake Total 640 290 Output Total 300 Balance 340 290 Meds/Results Medications: Active Medications Generic Name Dose Route Start Last Admin Trade Name Freq PRN Reason Stop Dose Admin Acetaminophen 1,000 mg 01/31/20 14:14 Acetaminophen 500 Mg Tablet PO Q6H PRN Mild Pain (1-3) Aspirin 325 mg 02/01/20 09:00 02/01/20
--- NOTE | 2020-02-01 14:55 | PCOTNOTE ---
On 02/01/20, the student, Renee Albrecht, provided care and [facility]. I have reviewed the student's documentation and agree with the findings.
--- NOTE | 2020-02-01 15:10 | PM.PNORT ---
Progress Note: A&P Additional Plan POD 1 DOING WELL. CONTINE PT. ANTICIPATE DC IN AM Subjective Subjective Date/Time Seen: 02/01/20 15:10 POD 1 DOING WELL. BLOCK STILL EFFECTIVE. NO CALF PAIN Exam Extrem: General: normal to inspection Other: VSS AFEBRILE DRESSING DRY NV INTACT ASIDE FROM BLOCK CALF SOFT NON TENDER NEG HOMANS SIGN Objective Data Vital Signs Vital Signs: Vital Signs - 24 hr 01/31/20 15:20 01/31/20 15:30 01/31/20 16:50 Temperature 36.2 C L 36.4 C L 36.3 C L Pulse Rate 74 69 77 Respiratory Rate 16 18 18 Blood Pressure 128/69 123/69 139/76 Pulse Oximetry 100 100 99 01/31/20 20:00 01/31/20 21:52 02/01/20 02:00 Temperature 36.2 C L 36.3 C L Pulse Rate 76 76 67 Respiratory Rate 16 16 16 Blood Pressure 115/58 L 114/69 Pulse Oximetry 97 97 99 02/01/20 06:00 02/01/20 10:00 Temperature 36.3 C L 36.8 C Pulse Rate 66 78 Respiratory Rate 16 15 Blood Pressure 127/70 108/51 L Pulse Oximetry 99 98 Intake/Output Intake/Output: Intake & Output 01/29/20 01/30/20 01/31/20 02/01/20 23:59 23:59 23:59 23:59 Intake Total 640 290 Output Total 300 Balance 340 290 Meds/Results Medications: Active Medications Generic Name Dose Route Start Last Admin Trade Name Freq PRN Reason Stop Dose Admin Acetaminophen 1,000 mg 01/31/20 14:14 Acetaminophen 500 Mg Tablet PO Q6H PRN Mild Pain (1-3) Aspirin 325 mg 02/01/20 09:00 02/01/20 08:50 Aspirin 325 Mg Enteric Tablet PO 325 mg DAILY DEBORA Administration Calcium Carbonate 1,000 mg 02/01/20 09:00 02/01/20 08:52 Calcium Carbonate (Oscal) 500 Mg Tablet PO 1,000 mg DAILY DEBORA Administration Calcium Polycarbophil 625 mg 02/01/20 09:00 02/01/20 08:58 Calcium Polycarbophil 625 Mg Tablet PO 625 mg BID DEBORA Administration Celecoxib 200 mg 01/31/20 17:00 02/01/20 08:50 Celecoxib 200 Mg Capsule PO 200 mg BIDWM DEBORA Administration Diazepam 5 mg 01/31/20 14:14 Diazepam (*Crx) 5 Mg Tablet PO Q8H PRN Spasms Diphenhydramine HCl 25 mg 01/31/20 14:14 Diphenhydramine Hcl Inj 50 Mg/Ml Vial IV PUSH Q6H PRN Itching Docusate Sodium 100 mg 01/31/20 17:00 02/01/20 08:53 Docusate Sodium 100 Mg Capsule PO 100 mg BID DEBORA Administration Ezetimibe 10 mg 01/31/20 21:00 01/31/20 20:30 Ezetimibe 10 Mg Tablet PO 10 mg HS DEBORA Administration Famotidine 20 mg 01/31/20 21:00 02/01/20 08:51 Famotidine 20 Mg Tablet PO 20 mg Q12HR DEBORA Administration Lisinopril 20 mg 02/01/20 09:00 02/01/20 08:51 Lisinopril 20 Mg Tablet PO 20 mg QAM DEBORA Administration Morphine Sulfate 4 mg 01/31/20 14:14 Morphine Sulfate (*Crx) 4 Mg/Ml Inj IV PUSH Q2H PRN Breakthrough pain rated 7-10 Multivitamins/Minerals 1 tablet 01/31/20 17:28 02/01/20 08:53 Opti-Gen Tab PO 03/01/20 17:29 1 tablet BID DEBORA Administration Naloxone HCl 0.1 mg 01/31/20 14:14 Naloxone Hcl 0.4 Mg/Ml Vial IV PUSH Q2M PRN Opiate Reversal Ondansetron HCl 4 mg 01/31/20 14:14 Ondansetron Inj 4 Mg/2 Ml Vial IV PUSH Q4H PRN Nausea And Vomiting Oxycodone/Acetaminophen 1 tablet 01/31/20 14:14 02/01/20 13:22 Oxycodone/Acetaminophen (*Crx) 5-325 Mg Tablet PO 1 tablet Q4H PRN Administration Pain Rated 4-6 Rosuvastatin Calcium 40 mg 01/31/20 21:00 01/31/20 20:25 Rosuvastatin 10 Mg Tablet PO 40 mg HS DEBORA Administration Radiology Results: ITS Impressions Knee X-Ray 01/31/20 14:52 IMPRESSION: 1. Total left knee arthroplasty in near-anatomic alignment. Labs Labs: Laboratory Results - last 24 hr 01/31/20 02/01/20 02/01/20 15:38 05:31 05:31 WBC 11.0 H RBC 3.30 L Hgb 10.0 L Hct 31.7 L MCV 96.1 MCH 30.3 MCHC 31.5 L RDW 13.2 Plt Count 220 MPV 9.8 Immature Gran % (Auto) 0.5 Neut % (Auto) 88.7 H Lymph % (Auto) 4.1 L Carver % (Auto) 6.6 Eos % (Auto) 0.0
[2020-02-01 18:00] VITALS: BP 117/64; PULSE 72; RESP 18; TEMP 37; O2SAT 99
[2020-02-01] MEDS: EZETIMIBE 10 MG TABLET PO (21:36)
[2020-02-01] MEDS: ROSUVASTATIN 10 MG TABLET 40 MG PO (21:37)
[2020-02-01 22:00] VITALS: BP 115/72; PULSE 67; RESP 16; TEMP 36.7; O2SAT 98
[2020-02-02] MEDS: oxyCODONE/ACETAMINOPHEN (*CRX) 5-325 MG TABLET 1 TABLET PO ×4 (01:42→13:39)
[2020-02-02 02:00] VITALS: BP 106/55; PULSE 64; RESP 16; TEMP 36.6; O2SAT 99
[2020-02-02 05:43] VITALS: BP 110/60; PULSE 66; RESP 16; TEMP 37.2; O2SAT 98
[2020-02-02] MEDS: CELECOXIB 200 MG CAPSULE PO (08:21)
[2020-02-02] MEDS: DOCUSATE SODIUM 100 MG CAPSULE PO (08:21)
[2020-02-02] MEDS: FAMOTIDINE 20 MG TABLET PO (08:21)
[2020-02-02] MEDS: CALCIUM CARBONATE (OSCAL) 500 MG TABLET 1000 MG PO (08:21)
[2020-02-02] MEDS: ASPIRIN 325 MG ENTERIC TABLET PO (08:21)
[2020-02-02] MEDS: calcium polycarbophiL 625 MG TABLET PO (08:21)
[2020-02-02] MEDS: OPTI-GEN TAB 1 TABLET PO (08:22)
[2020-02-02] MEDS: lisinopriL 20 MG TABLET PO (08:22)
--- NOTE | 2020-02-02 09:41 | PM.PNORT ---
Progress Note: A&P Assessment and Plan (1) S/P total knee arthroplasty: Qualifiers: Laterality: left Qualified Code(s): Z96.652 - Presence of left artificial knee joint Code(s): Z96.659 - Presence of unspecified artificial knee joint Status: Acute Assessment and Plan: POD #2: Left TKA Continue PT/OT. WBAT. Walker. Fall Risk. Continue pain control. Ice. No pillows under knee. SCDs. Incentive spirometry. DVT prophylaxis. Monitor dressing, change prior to discharge. Dispo: Home with Home Health pending progress with PT/OT. Likely today. Subjective Subjective Date/Time Seen: 02/02/20 09:00 POD#2: Left TKA Feeling better today. Feels her block is starting to wear off. Was able to shower by herself. Worked well with PT/OT. Would like to go home today. Review of Systems Review of Systems: All systems reviewed & are unremarkable except as noted in HPI and below Constitutional: Constitutional: Denies fever(s) and Denies headache(s) ENT: Denies headache(s) Cardiovascular: Cardiovascular: Denies chest pain, Denies diaphoresis, Denies palpitations and Denies dyspnea Respiratory: Respiratory: Denies dyspnea Gastrointestinal: Gastrointestinal: Denies abdominal pain, Denies constipation, Denies nausea and Denies vomiting Genitourinary: Genitourinary: Reports nocturia and Denies dysuria Musculoskeletal: Musculoskeletal: Reports arthralgias (Left Knee ), Reports joint swelling (Left Knee ) and Reports limited range of motion (ROM limited due to recent surgical intervention LEFT Knee ) Neurologic: Denies headache(s) Endocrine: Endocrine: Denies palpitations Exam Const: General: comfortable and no acute distress Resp: Effort & Inspection: normal respiratory effort Cardio: Rate: regular rate Rhythm: regular rhythm GI: GI Palp: Yes Soft to palpation, No Tenderness to palpation present (GI) and No Guarding due to palpation present (GI) Skin: Wounds: wounds noted Other: Incision c/d/i. No surrounding redness/warmth. No hematoma. Mild ecchymosis. No wound dehiscence Neuro: Cognition (Neuro): normal cognition Other: NV intact, block wearing off. Moves toes. Sensation intact to light touch. +ankle dorsiflexion/plantarflexion. Extrem: Right upper extremity: normal to inspection, full ROM and normal capillary refill Left upper extremity: normal to inspection, full ROM and normal capillary refill Right lower extremity: normal to inspection, full ROM (ROM limited due to recent surgical intervention ) and knee (previous right TKA incision well-healed ) Details: normal ROM; no tenderness and no swelling Left lower extremity: normal to inspection, normal capillary refill and knee Details: tenderness (diffuse ), swelling (moderate consistent to recent surgery ), abnormal ROM (limited due to recent surgery ) and ecchymosis (as expected with recent surgery. NO hematoma. ) Other: Incision left TKA dressing c/d/i. No hematoma. No signs of infection. No wound dehiscence. Psych: Mental Status: mental status grossly normal Objective Data Vital Signs Vital Signs: Vital Signs - 24 hr 02/01/20 10:00 02/01/20 14:00 02/01/20 18:00 Temperature 36.8 C 36.6 C 37.0 C Pulse Rate 78 77 72 Respiratory Rate 15 15 18 Blood Pressure 108/51 L 127/66 117/64 Pulse Oximetry 98 97 99 02/01/20 22:00 02/02/20 02:00 02/02/20 05:43 Temperature 36.7 C 36.6 C 37.2 C Pulse Rate 67 64 66 Respiratory Rate 16 16 16 Blood Pressure 115/72 106/55 L 110/60 Pulse Oximetry 98 99 98 Intake/Output Intake/Output: Intake & Output 01/30/20 01/31/20 02/01/20 02/02/20 23:59 23:59 23:59 23:59 Intake Total 640 1220 590 Output Total 300 300 300 Balance 340 920 290 Meds/Results Medications: Active Medications Generic Name Dose Route Start Last Admin Trade Name Freq PRN Reason Stop Dose Admin Acetaminophen 1,000 mg 01/31/20 14:14 Acetaminophen 500 Mg Tablet PO Q6H PRN Mild Pain (1-
[2020-02-02 10:00] VITALS: BP 111/52; PULSE 78; RESP 18; TEMP 36.8; O2SAT 99
--- NOTE | 2020-02-02 10:01 | PM.IMPN ---
Progress Note: A&P Assessment and Plan (1) Bilateral primary osteoarthritis of knee: Code(s): M17.0 - Bilateral primary osteoarthritis of knee Status: Acute Assessment and Plan: Patient with bilateral osteoarthritis of the knees now status post bilateral total knee arthroplasty. She tolerated right total knee arthroplasty well with only some mild stiffness. She returns and is now POD #2 from a left total knee arthroplasty. She appears to have tolerated this procedure well except having diffuse stiffness. Continue PT and OT. Continue current pain management. (2) S/P total knee arthroplasty: Qualifiers: Laterality: right Qualified Code(s): Z96.651 - Presence of right artificial knee joint Code(s): Z96.659 - Presence of unspecified artificial knee joint Status: Acute Assessment and Plan: As above. (3) Essential (primary) hypertension: Code(s): I10 - Essential (primary) hypertension Status: Chronic Assessment and Plan: Patient blood pressure well controlled today (02/01). Continue Lisinopril (4) Mixed hyperlipidemia: Code(s): E78.2 - Mixed hyperlipidemia Status: Chronic Assessment and Plan: LFTs normal. Continue her Zetia and Crestor. (5) Chronic GERD: Code(s): K21.9 - Gastro-esophageal reflux disease without esophagitis Status: Acute Assessment and Plan: Stable. Continue Pepcid. Continue to monitor for worsening symptoms. (6) DVT prophylaxis: Code(s): Z29.9 - Encounter for prophylactic measures, unspecified Status: Acute Assessment and Plan: DVT prophylaxis per Orthopedic protocols. Subjective Date/time seen: 02/02/20 10:01 Interval history: Date of service: 02/01 70yo female with HTN and HLD here for elective left TKA. Left leg is nolonger buckling at this time. Does feel whole body achiness. No n/v. No diarrhea. No CP or SOB. No cough. Pain reasonable. Exam Narrative: Exam Narrative: AF 98.9 110/60 66 16 98% ra Gen - NARD Chest - lungs are clear to auscultation bilaterally. CV - heart was regular rate and rhythm. S1-S2. Abd - abdomen was soft. Nontender. Nondistended. Positive bowel sounds. Ext - left LE was LEORA wrapped from mid thigh to foot. no RLE edema Psych - normal mood and affect. Skin - warm and dry. No rashes noted. Objective Data Vital Signs Vital Signs: Vital Signs - 24 hr 02/01/20 14:00 02/01/20 18:00 02/01/20 22:00 Temperature 98 F 98.6 F 98.1 F Pulse Rate 77 72 67 Respiratory Rate 15 18 16 Blood Pressure 127/66 117/64 115/72 Pulse Oximetry 97 99 98 02/02/20 02:00 02/02/20 05:43 Temperature 97.8 F 98.9 F Pulse Rate 64 66 Respiratory Rate 16 16 Blood Pressure 106/55 L 110/60 Pulse Oximetry 99 98 Intake/Output Intake/Output: Intake & Output 01/30/20 01/31/20 02/01/20 02/02/20 23:59 23:59 23:59 23:59 Intake Total 640 1220 590 Output Total 300 300 300 Balance 340 920 290 Meds/Results Medications: Active Medications Generic Name Dose Route Start Last Admin Trade Name Freq PRN Reason Stop Dose Admin Acetaminophen 1,000 mg 01/31/20 14:14 Acetaminophen 500 Mg Tablet PO Q6H PRN Mild Pain (1-3) Aspirin 325 mg 02/01/20 09:00 02/02/20 08:21 Aspirin 325 Mg Enteric Tablet PO 325 mg DAILY DEBORA Administration Calcium Carbonate 1,000 mg 02/01/20 09:00 02/02/20 08:21 Calcium Carbonate (Oscal) 500 Mg Tablet PO 1,000 mg DAILY DEBORA Administration Calcium Polycarbophil 625 mg 02/01/20 09:00 02/02/20 08:21 Calcium Polycarbophil 625 Mg Tablet PO 625 mg BID DEBORA Administration Celecoxib 200 mg 01/31/20 17:00 02/02/20 08:21 Celecoxib 200 Mg Capsule PO 200 mg BIDWM DEBORA Administration Diazepam 5 mg 01/31/20 14:14 Diazepam (*Crx) 5 Mg Tablet PO Q8H PRN Spasms Diphenhydramine HCl 25 mg 01/31/20 14:14 Diphenhydramine Hc
--- NOTE | 2020-02-02 16:19 | PM.DS ---
DS: Admitting Diagnosis Admitting Diagnosis Admitting Diagnosis: left knee OA DS: Discharge Diagnosis Discharge Diagnosis (1) S/P total knee arthroplasty: Qualifiers: Laterality: left Qualified Code(s): Z96.652 - Presence of left artificial knee joint Code(s): Z96.659 - Presence of unspecified artificial knee joint Status: Acute Assessment and Plan: POD #2: Left TKA Continue PT/OT. WBAT. Walker. Fall Risk. Continue pain control. Ice. No pillows under knee. SCDs. Incentive spirometry. DVT prophylaxis. Monitor dressing, change prior to discharge. Dispo: Home with Home Health pending progress with PT/OT. Likely today. DS: Summary Hospital Course Reason for hospitalization: Left total knee replacement Hospital Course: 70-year-old female admitted status post left total knee replacement for postop medical management, pain control and PT /OT. The patient progressed well with formal physical therapy and occupational therapy. She did have difficulties with weakness with extension status post surgery which is related to her block. Her block is now worn off. Her pain is well controlled with oral pain medications and ice. She has been cleared from a medical standpoint and a physical therapy standpoint. The patient would like to go home at this time. She will be discharged home with home health. She will follow up in our outpatient clinic in approximately 3 weeks. Status at Discharge Functional status at discharge: uses cane/walker Overall status at discharge: patient is progressing back to baseline Time Spent with Patient Time attestation: Total time spent providing and/or coordinating discharge services: Time spent: Less than 30 minutes Exam Const: General: comfortable and no acute distress Resp: Effort & Inspection: normal respiratory effort Cardio: Rate: regular rate Rhythm: regular rhythm Skin: Wounds: wounds noted Other: Incision c/d/i. No surrounding redness/warmth. No hematoma. Mild ecchymosis. No wound dehiscence Neuro: Cognition (Neuro): normal cognition Other: NV intact, block wearing off. Moves toes. Sensation intact to light touch. +ankle dorsiflexion/plantarflexion. Extrem: General: normal to inspection Right upper extremity: normal to inspection, full ROM and normal capillary refill Left upper extremity: normal to inspection, full ROM and normal capillary refill Right lower extremity: normal to inspection, full ROM (ROM limited due to recent surgical intervention ) and knee (previous right TKA incision well-healed ) Details: normal ROM; no tenderness and no swelling Left lower extremity: normal to inspection, normal capillary refill and knee Details: tenderness (diffuse ), swelling (moderate consistent to recent surgery ), abnormal ROM (limited due to recent surgery ) and ecchymosis (as expected with recent surgery. NO hematoma. ) Other: Incision left TKA dressing c/d/i. No hematoma. No signs of infection. No wound dehiscence. Psych: Mental Status: mental status grossly normal Discharge Plan Discharge Attending physician on discharge: Paulo Conklin Consulting providers: Noa Carter Discharging Clinician: Estee Osman Anticipated Discharge Date/Time: 02/02/20 15:00 Patient Disposition: Home Health Service Activity: may shower, no driving and follow weight bearing status Diet: as tolerated Wound Care Instructions: follow printed instructions Discharge Instructions: Per Care Coordination: Patient to have [facility] for RN and PT/OT eval and treat. [phone]. Post Op Total Knee Replacement Instructions Dr. Paulo Conklin ?Your dressing will be changed prior to your discharge. You will be sent home with one additional dressing to be changed in 5 days by the home health RN. Your mickey will be removed on the 14th day after surgery and steri-strips will be placed. ?You may shower with your dressing but do not submerge in a
== END 2020-02-02 13:45 | disposition home health service (06) ==
LOC: ANHSURGERY 17:23 → ANH2MED 17:23
PROVIDERS: Admitting Provider Orthopaedic Surgery; PCP Family Medicine; Visit Provider Orthopaedic Surgery
PROC: (CPT 27447; principal; 2020-01-31 11:30)
DX: M17.12 Unilateral primary osteoarthritis, left knee (principal); G89.18 Other acute postprocedural pain; R53.1 Weakness; I10 Essential (primary) hypertension; K21.9 Gastro-esophageal reflux disease without esophagitis; E78.00 Pure hypercholesterolemia, unspecified; K76.0 Fatty (change of) liver, not elsewhere classified; E78.2 Mixed hyperlipidemia; R91.8 Other nonspecific abnormal finding of lung field; Z79.82 Long term (current) use of aspirin; E66.9 Obesity, unspecified; Z68.30 Body mass index [BMI] 30.0-30.9, adult; Z23 Encounter for immunization
CPT/HCPCS: 27447; 64447; 36415; 73560; 80048; 80076; 82565; 85025; 90471; 90653; 97110; 97116; 97161; 97165; 97530; 97535; A9270; C1713; C1776; G0008; G0378; J0171; J0330; J0690; J1100; J1170; J1885; J2250; J2270; J2370; J2405; J2704; J2795; J3010; J7120

== ENCOUNTER → 2020-07-07 01:15 | Outpatient (CLI) | payer MEDICARE, SELFPAY ==
[2020-07-07 19:13] LABS: SARS-CoV-2 RNA PCR Negative
== END ==
PROVIDERS: PCP Family Medicine; Visit Provider Internal Medicine Gastroenterology
DX: Z01.812 Encounter for preprocedural laboratory examination (principal); Z20.822 Contact with and (suspected) exposure to COVID-19
CPT/HCPCS: C9803; U0003; U0005

== ENCOUNTER 2020-07-11 02:20 | Day surgery (SDC) | payer MEDICARE, SELFPAY ==
[2020-07-11 10:46] VITALS: BP 111/73; PULSE 93; RESP 16; TEMP 36.7; O2SAT 99; BMI 28.8
[2020-07-11] MEDS: LACTATED RINGERS 1,000 ML 150 ML IV CONT (10:53)
--- NOTE | 2020-07-11 11:49 | WPDANESEPP ---
Anes - Eval Pre Procedure Procedure: Operation Date: 07/11/20 12:00 Proposed Procedures p Screening Colonoscopy - Jadon Jeter DO Date/Time: 07/11/20 11:49 Pre Op Diagnosis: neoplasm screening Patient Data Age: 70 Gender: F Height: 1.6 m Weight: 73.8 kg Last Vital Signs Temp 36.7 C 07/11/20 10:46 Pulse 93 07/11/20 10:46 Resp 16 07/11/20 10:46 BP 111/73 07/11/20 10:46 Pulse Ox 99 07/11/20 10:46 Allergies Allergy/AdvReac Type Severity Reaction Status Date / Time No Known Allergies Allergy Verified 07/11/20 10:44 Home Medications Medication Instructions Recorded Confirmed Type cholecalciferol (vitamin D3) 25 2,000 unit PO DAILY 03/23/19 07/11/20 History mcg (1,000 unit) capsule multivitamin 1 tablet PO DAILY 04/18/19 07/11/20 History vit C 250 mg-vit E 90 mg-zinc 40 1 cap PO BID 04/18/19 07/11/20 History mg-copper 1 [id number] capsule Pepcid Complete 1 tablet PO DAILY 10/31/19 07/11/20 History rosuvastatin 40 mg PO HS 10/31/19 07/11/20 History pantoprazole 40 mg tablet,delayed 20 mg PO QAM #90 tablet 11/08/19 07/11/20 Rx release ezetimibe 10 mg tablet 10 mg PO HS #90 tablet 12/05/19 07/11/20 Rx calcium carbonate [Calcium 600] 1,200 mg PO DAILY 01/27/20 07/11/20 History fiber 1 cap PO BID 01/27/20 07/11/20 History glucosamine sulfate 750 mg PO BID 01/27/20 07/11/20 History quinapril 20 mg PO QAM 01/27/20 07/11/20 History diclofenac sodium 75 mg 75 mg PO BID #180 tablet 05/17/20 07/11/20 Rx tablet,delayed release aspirin 325 mg PO DAILY 06/27/20 07/11/20 History Patient hx anesthesia problems: none Family hx anesthesia problems: none PMFSH Past Medical History Medical History Abnormal CT of the abdomen ventral hernia Abrasion of toe, left which turned into cellulitis and received approximately 2 weeks of antibiotics. 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 repeat in 6 months unchanged. no further surveillance needed) Mammogram normal (~10/01/18) Mixed hyperlipidemia Osteopenia Rotator cuff syndrome of right shoulder Ventral hernia Surgical History Surgical History H/O colonoscopy with polypectomy H/O eye surgery (~10/28/19) History of carpal tunnel release (~07/26/13) History of colonoscopy (~05/15/14) repeat 5-7 years History of detached retina repair History of hysterectomy (~2001) History of tonsillectomy (~1967) S/P total knee arthroplasty right in November 2019. Left January 2020 Family History Family History Mother Family history of elevated blood lipids Diabetes mellitus Hypertension Patient's mother is Father Family history of cardiovascular disease Cardiomyopathy Heart muscle disorder caused by another medical condition Grandparent Acute myocardial infarction Daughter Thyroid cancer Social History Social History Social History: she lives with her . She is lifelong nonsmoker. Her is a durable power deputy prosecuting attorney for healthcare. She is retired from [employer]. she has 2 children. She desires to be a full code. No alcohol no tobacco or illicit drugs. Years smoked: 4 Smoking status: Former smoker Tobacco type: cigarettes Second hand tobacco smoke exposure: No Alcohol intake: current Drinks per week: 1 Substance use: nev
--- NOTE | 2020-07-11 12:22 | WPDANESEPPF ---
Anes - Initial Pre Proc Eval Procedure: Operation Date: 07/11/20 12:00 Proposed Procedures p Screening Colonoscopy - Jadon Jeter DO Date/Time: 07/11/20 12:22 Surgeon: Jadon Jeter DO Pre Op Diagnosis: neoplasm screening Patient Data Age: 70 Gender: F Height: 5 ft 3 in Weight: 73.8 kg Last Vital Signs Temp 98.1 F 07/11/20 10:46 Pulse 93 07/11/20 10:46 Resp 16 07/11/20 10:46 BP 111/73 07/11/20 10:46 Pulse Ox 99 07/11/20 10:46 Allergies Allergy/AdvReac Type Severity Reaction Status Date / Time No Known Allergies Allergy Verified 07/11/20 10:44 Home Medications Medication Instructions Recorded Confirmed Type cholecalciferol (vitamin D3) 25 2,000 unit PO DAILY 03/23/19 07/11/20 History mcg (1,000 unit) capsule multivitamin 1 tablet PO DAILY 04/18/19 07/11/20 History vit C 250 mg-vit E 90 mg-zinc 40 1 cap PO BID 04/18/19 07/11/20 History mg-copper 1 [id number] capsule Pepcid Complete 1 tablet PO DAILY 10/31/19 07/11/20 History rosuvastatin 40 mg PO HS 10/31/19 07/11/20 History pantoprazole 40 mg tablet,delayed 20 mg PO QAM #90 tablet 11/08/19 07/11/20 Rx release ezetimibe 10 mg tablet 10 mg PO HS #90 tablet 12/05/19 07/11/20 Rx calcium carbonate [Calcium 600] 1,200 mg PO DAILY 01/27/20 07/11/20 History fiber 1 cap PO BID 01/27/20 07/11/20 History glucosamine sulfate 750 mg PO BID 01/27/20 07/11/20 History quinapril 20 mg PO QAM 01/27/20 07/11/20 History diclofenac sodium 75 mg 75 mg PO BID #180 tablet 05/17/20 07/11/20 Rx tablet,delayed release aspirin 325 mg PO DAILY 06/27/20 07/11/20 History Patient hx anesthesia problems: none Family hx anesthesia problems: none PMFSH Past Medical History Medical History Abnormal CT of the abdomen ventral hernia Abrasion of toe, left which turned into cellulitis and received approximately 2 weeks of antibiotics. 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 repeat in 6 months unchanged. no further surveillance needed) Mammogram normal (~10/01/18) Mixed hyperlipidemia Osteopenia Rotator cuff syndrome of right shoulder Ventral hernia Surgical History Surgical History H/O colonoscopy with polypectomy H/O eye surgery (~10/28/19) History of carpal tunnel release (~07/26/13) History of colonoscopy (~05/15/14) repeat 5-7 years History of detached retina repair History of hysterectomy (~2001) History of tonsillectomy (~1967) S/P total knee arthroplasty right in November 2019. Left January 2020 Family History Family History Mother Family history of elevated blood lipids Diabetes mellitus Hypertension Patient's mother is Father Family history of cardiovascular disease Cardiomyopathy Heart muscle disorder caused by another medical condition Grandparent Acute myocardial infarction Daughter Thyroid cancer Social History Social History Social History: she lives with her . She is lifelong nonsmoker. Her is a durable power curriculum assistant for healthcare. She is retired from [employer]. she has 2 children. She desires to be a full code. No alcohol no tobacco or illicit drugs. Years smoked: 4 Smoking status: Former smoker Tobacco type: cigarettes Second hand tobacco smoke exposure: No Alcohol intake: current Dri
--- NOTE | 2020-07-11 12:44 | WPDGICN ---
GI Consult Note Consult date/time: 07/11/20 12:44 HPI: Reason for visit is colonoscopy. This very pleasant lady seen in consultation at the request the primary physician. Impression: Screening and surveillance colonoscopy. The patient has a history of colon polyps. GERD. DJD. Hepatic steatosis. HLD. HTN. Low bone mass. Lung nodules. Recommendation: Colonoscopy. History: This very pleasant lady is here for screening and surveillance colonoscopy. She has remote history of diverticulosis coli and colon polyps. Her GI review systems negative. She does have remote history of GERD that is controlled on medication. Physical examination: General: very pleasant patient in no acute distress. HEENT: Head was normocephalic sclerae is clear mouth without masses neck was supple. Heart: Rate rhythm regular without S3 or S4. Lungs: CTA. Abdomen: Soft with no guarding or rigidity. Bowel sounds were active. Neurologic: Cranial nerves 2 through 12 intact. No focal defects. No clonus. Musculoskeletal system: Revealed no joint tenderness or swelling no muscle atrophy. Extremities: Reveal no significant edema. Skin: Warm and dry with normal turgor. Mental status: intact. Patient is alert and oriented. Review of Systems Review of Systems: All systems reviewed & are unremarkable except as noted in HPI and below PMFSH Past Medical History Medical History (Updated 07/11/20 @ 12:43 by Jadon Jeter DO) Degenerative joint disease of right knee Diverticulosis Fatty liver HLD (hyperlipidemia) HTN (hypertension) Hypertension Low bone mass Lung nodules (~07/20/18) CT 01/20/19 all nodules stable (-2018: ct 4mm RML nodule. repeat in 6 months -2018 unchanged. no further surveillance needed) Surgical History Surgical History H/O colonoscopy with polypectomy H/O eye surgery (~10/28/19) History of carpal tunnel release (~07/26/13) History of colonoscopy (~05/15/14) repeat 5-7 years History of detached retina repair History of hysterectomy (~2001) History of tonsillectomy (~1967) S/P total knee arthroplasty right in November 2019. Left January 2020 Family History Family History Mother Family history of elevated blood lipids Diabetes mellitus Hypertension Patient's mother is Father Family history of cardiovascular disease Cardiomyopathy Heart muscle disorder caused by another medical condition Grandparent Acute myocardial infarction Daughter Thyroid cancer Social History Social History Social History: she lives with her . She is lifelong nonsmoker. Her is a durable power label stitcher for healthcare. She is retired from [employer]. she has 2 children. She desires to be a full code. No alcohol no tobacco or illicit drugs. Years smoked: 4 Smoking status: Former smoker Tobacco type: cigarettes Second hand tobacco smoke exposure: No Alcohol intake: current Drinks per week: 1 Substance use: never Substance use type: does not use Living arrangements: with family Additional living arrangements comments: KINDRA- Gender identity (if verbalized by the patient): Female Spiritual care concerns: No Meds Home Medications and Allergies Home Medications Medication Instructions Recorded Confirmed Type cholecalciferol (vitamin D3) 25 2,000 unit PO DAILY 03/23/19 07/11/20 History mcg (1,000 unit) capsule multivitamin 1 tablet PO DAILY 04/18/19 07/11/20 History vit C 250 mg-vit E 90 mg-zinc 40 1 cap PO BID 04/18/19 07/11/20 History mg-copper 1 [id number] capsule Pepcid Complete 1 tablet PO DAILY 10/31/19 07/11/20 History rosuvastatin 40 mg PO HS 10/31/19 07/11/20 History pantoprazole 40 mg tablet,delayed 20 mg
[2020-07-11 13:06] VITALS: BP 78/43; PULSE 72; RESP 21; O2SAT 96
[2020-07-11 13:16] VITALS: BP 121/70; PULSE 52; RESP 21; O2SAT 100
[2020-07-11 13:26] VITALS: BP 99/50; PULSE 64; RESP 19; O2SAT 100
[2020-07-11 13:36] VITALS: BP 108/72; PULSE 65; RESP 21; O2SAT 100
== END 2020-07-11 13:41 | disposition home or self-care (01) ==
PROVIDERS: PCP Family Medicine; Visit Provider Internal Medicine Gastroenterology
PROC: 0DJD8ZZ Inspection of Lower Intestinal Tract, Via Natural or Artificial Opening Endoscopic (ICD-10-PCS; CPT 45378; principal; 2020-07-11 12:00)
DX: Z12.11 Encounter for screening for malignant neoplasm of colon (principal); K63.5 Polyp of colon; K57.30 Diverticulosis of large intestine without perforation or abscess without bleeding; K64.8 Other hemorrhoids; I10 Essential (primary) hypertension; E78.5 Hyperlipidemia, unspecified; K76.0 Fatty (change of) liver, not elsewhere classified; R91.1 Solitary pulmonary nodule; M85.80 Other specified disorders of bone density and structure, unspecified site; Z87.891 Personal history of nicotine dependence
CPT/HCPCS: 45380; 88305; J2370; J2704; J7120

== ENCOUNTER 2021-07-11 10:13 | Outpatient (CLI) | payer MEDICARE, SELFPAY ==
--- NOTE | ~2021-07-11 | DEXA_ITS ---
Bone Density Report Name: MORIAH ASHFORD Age: 71 Sex: Female Ethnicity: White Date of : 1950 Indication: osteopenia; height loss; hysterectomy; postmenopausal Referring Provider: Juancho Galaviz Study: Bone densitometry was performed. Exam Date: July 11, 2021 Accession number: [id number] Bone Density: Region BMD T-score Z-score Classification AP Spine (L1-L4) 1.072 0.2 2.3 Normal Femoral Neck (Left) 0.602 -2.2 -0.5 Osteopenia Total Hip (Left) 0.843 -0.8 0.7 Normal Total Hip Bilateral Avg 0.769 -1.4 0.0 Osteopenia Femoral Neck (Right) 0.636 -1.9 -0.2 Osteopenia Total Hip (Right) 0.693 -2.0 -0.6 Osteopenia World Health Organization criteria for BMD impression classify patients as: Normal (T-score at or above -1.0), Osteopenia (T-score between -1.0 and -2.5), or Osteoporosis (T-score at or below -2.5). 10-year Fracture Risk(1): Major Osteoporotic Fracture 12% Hip Fracture 2.3% Reported Risk Factors: [place] (), Neck BMD=0.602, BMI=32.0 (1) FRAX(R) Version 3.08. Fracture probability calculated for an untreated patient. Fracture probability may be lower if the patient has received treatment. Previous Exams: Region Exam Age BMD T-score BMD Change BMD Change Date g/cm2 vs Baseline vs Previous AP Spine(L1-L4) 07/11/2021 71 1.072 0.2 0.034(3.2%)# 0.064(6.4%)* 01/26/2019 69 1.007 -0.4 -0.031(-3.0%)# -0.031(-3.0%)* 11/18/2016 66 1.038 -0.1 0.000(0.0%)# -0.001(-0.1%) 04/18/2014 64 1.039 -0.1 0.001(0.1%)# 0.001(0.1%)# 01/11/2008 58 1.038 -0.1 Total Hip(Left) 07/11/2021 71 0.843 -0.8 -0.142(-14.5%) -0.019(-2.2%) 01/26/2019 69 0.861 -0.7 -0.124(-12.6%) -0.024(-2.7%) 11/18/2016 66 0.885 -0.5 -0.100(-10.2%) -0.052(-5.5%)* 04/18/2014 64 0.936 0.0 -0.049(-4.9%)# -0.039(-4.0%)# 02/02/2010 60 0.975 0.3 -0.010(-1.0%) -0.010(-1.0%) 01/11/2008 58 0.985 0.4 Total Hip(Right) 07/11/2021 71 0.693 -2.0 -0.227(-24.7%) -0.088(-11.3%) 01/26/2019 69 0.781 -1.3 -0.139(-15.1%) -0.011(-1.4%) 11/18/2016 66 0.792 -1.2 -0.128(-13.9%) -0.033(-4.0%)* 04/18/2014 64 0.825 -1.0 -0.095(-10.3%) -0.069(-7.7%)# 02/02/2010 60 0.894 -0.4 -0.026(-2.8%) -0.026(-2.8%) 01/11/2008 58 0.920 -0.2 *Denotes significance at 95% confidence level, LSC for AP Spine = 0.022 g/cm2, LSC for Total Hip = 0.027 g/cm2 Clinical Information Provided by Patient: Has used the following medications: Vitamin D, Calcium Has
== END 2021-07-11 10:14 | disposition home or self-care (01) ==
PROVIDERS: PCP Family Medicine; Visit Provider Physician Assistant Medical
DX: Z78.0 Asymptomatic menopausal state (principal); M85.852 Other specified disorders of bone density and structure, left thigh; M85.851 Other specified disorders of bone density and structure, right thigh
CPT/HCPCS: 77080

== ENCOUNTER 2022-01-06 08:08 | Outpatient (CLI) | payer MEDICARE, SELFPAY ==
--- NOTE | ~2022-01-06 | XR_ITS ---
SMALL BOWEL SERIES ONLY INDICATION: Gastroenteritis. TECHNIQUE: Serial plain films and fluoroscopic spot films are performed following oral demonstration of thin barium. COMPARISON: 02/22/2008 FINDINGS: Barium was followed sequentially through the small bowel. The mucosal pattern is unremarka ble. No evidence for stricture, polyp, diverticula or obstruction of flow of contrast. Transit time is normal. IMPRESSION: 1: Normal small bowel series. Reviewed, dictated and finalized at location A.
== END 2022-01-06 08:09 | disposition home or self-care (01) ==
PROVIDERS: PCP Family Medicine; Visit Provider Nurse Practitioner
DX: K52.9 Noninfective gastroenteritis and colitis, unspecified (principal); R93.3 Abnormal findings on diagnostic imaging of other parts of digestive tract
CPT/HCPCS: 74250

== ENCOUNTER 2022-01-14 13:22 | Outpatient (CLI) | payer MEDICARE, SELFPAY ==
--- NOTE | ~2022-01-14 | US_ITS ---
US arterial ankle brachial ind INDICATION: Elevated cholesterol. Numbness in the lower extremities. TECHNIQUE: Segmental pressures and plethysmographic and Doppler waveforms of the brachial and lower e xtremity arteries were obtained. COMPARISON: None. FINDINGS: Right and left brachial artery pressures of 135 mm Hg and 143 mm Hg, respectively, are concordant (no rmal difference <= 30 mmHg). The right ankle-brachial index (ORVILLE) is 1.16 (normal >= 0.9-1.0). The right great toe-brachial index (TBI) is 0.73 (normal >= 0.60). The left ORVILLE is 1.2. The left TBI is 0.66. IMPRESSION: 1. Normal bilateral ankle and toe brachial indices. Reviewed, dictated and finalized at location B.
== END 2022-01-14 13:23 | disposition home or self-care (01) ==
PROVIDERS: PCP Family Medicine; Visit Provider Family Medicine
DX: I73.9 Peripheral vascular disease, unspecified (principal); M62.838 Other muscle spasm
CPT/HCPCS: 93922

== ENCOUNTER 2022-01-16 01:29 | Day surgery (SDC) | payer MEDICARE, SELFPAY ==
[2022-01-06 12:50] VITALS: BMI 31.1
[2022-01-16 11:45] VITALS: BP 146/75; PULSE 80; RESP 18; TEMP 36.4; O2SAT 98
[2022-01-16] MEDS: LACTATED RINGERS 1,000 ML 150 ML IV CONT (11:48)
--- NOTE | 2022-01-16 12:36 | PM.HPGS ---
History of Present Illness History of Present Illness Consent: Risks, benefits, and alternatives have been discussed and questions answered. Patient agrees to proceed with procedure. Chief complaint: colitis Narrative: Светлана Hernández is a 72 year old female with a change in bowel habits and abnormal CT findings. She been having a great deal difficulty with her bowel movements earlier this year. She tends to be constipated for which she usually uses prune juice. She was feeling uncomfortable and therefore took more prune juice and other laxatives, then was seen in the ED where CT scan showed increased fluid throughout the colon and they raise the possibility of enterocolitis Review of Systems Review of Systems: All systems reviewed & are unremarkable except as noted in HPI and below PMFSH Past Medical History Medical History Abnormal digestive system diagnostic imaging Chronic constipation Degenerative joint disease of right knee Diverticulosis DVT prophylaxis GERD (gastroesophageal reflux disease) HLD (hyperlipidemia) HTN (hypertension) Hx of colonic polyps Hypertension Low bone mass Lung nodules (~07/20/18) CT 01/20/19 all nodules stable (-2018: ct 4mm RML nodule. repeat in 6 months unchanged. no further surveillance needed) Obesity Surgical History Surgical History H/O colonoscopy with polypectomy H/O eye surgery (~10/28/19) History of appendectomy 12/2001 History of carpal tunnel release (~07/26/13) History of colonoscopy (~05/15/14) repeat 5-7 years History of detached retina repair History of tonsillectomy (~1967) History of total abdominal hysterectomy and bilateral salpingo-oophorectomy 03/31/02 [facility]/BSO--irregular bleeding/dysmenorrhea Hx of section S/P total knee arthroplasty 12/07/19 rt knee 01/31/20 lt knee Family History Family History Mother Family history of elevated blood lipids Diabetes mellitus Hypertension Patient's mother is Father Family history of cardiovascular disease Cardiomyopathy Heart muscle disorder caused by another medical condition Grandparent Acute myocardial infarction Daughter Thyroid cancer Social History Social History Social History: she lives with her . Her is a durable power head custodian for healthcare. She is retired from [employer]. she has 2 children. She desires to be a full code. No alcohol no tobacco or illicit drugs. Years smoked: 4 Smoking status: Never smoker Tobacco type: cigarettes Second hand tobacco smoke exposure: No Additional smoking assessment comments: DENIES ANY FORM OF TOBACCO USE Alcohol intake: current Drinks per week: 1 Alcohol use details: vodka Substance use: never Substance use type: does not use Living arrangements: with family Additional living arrangements comments: KINDRA- Gender identity (if verbalized by the patient): Female Sexual Orientation (if Verbalized by the Patient): Straight or Heterosexual Spiritual care concerns: No Meds Home Medications and Allergies Home Medications Medication Instructions Recorded Confirmed Type cholecalciferol (vitamin D3) 25 2,000 unit PO DAILY 03/23/19 01/06/22 History mcg (1,000 unit) capsule multivitamin 1 tablet PO DAILY 04/18/19 01/06/22 History famotidine-Ca carb-mag hydrox 10 1 tablet PO DAILY 10/31/19 01/06/22 History mg-800 mg-165 mg chewable tablet (Pepcid Complete) calcium carbonate 600 mg calcium 1,200 mg PO DAILY 01/27/20 01/06/22 History (1,500 mg) tablet (Calcium) fiber 1 cap PO BID 01/27/20 01/06/22 History glucosamine sulfate 750 mg tablet 750 mg PO BID 01/27/20 01/06/22 History ezetimibe 10 mg tablet See Rx Instructions .
--- NOTE | 2022-01-16 12:41 | WPDANESEPPF ---
Anes - Initial Pre Proc Eval Procedure: Operation Date: 01/16/22 13:00 Proposed Procedures p Colonoscopy - Pancho Abad MD Date/Time: 01/16/22 12:41 Surgeon: Pancho Abad MD Pre Op Diagnosis: colitis Patient Data Age: 72 Gender: F Height: 1.6 m Weight: 76.8 kg Last Vital Signs Temp 97.6 F 01/16/22 11:45 Pulse 80 01/16/22 11:45 Resp 18 01/16/22 11:45 BP 146/75 H 01/16/22 11:45 Pulse Ox 98 01/16/22 11:45 O2 Del Method Room Air 01/16/22 11:45 Allergies Allergy/AdvReac Type Severity Reaction Status Date / Time No Known Allergies Allergy Verified 01/16/22 11:44 Home Medications Medication Instructions Recorded Confirmed Type cholecalciferol (vitamin D3) 25 2,000 unit PO DAILY 03/23/19 01/06/22 History mcg (1,000 unit) capsule multivitamin 1 tablet PO DAILY 04/18/19 01/06/22 History famotidine-Ca carb-mag hydrox 10 1 tablet PO DAILY 10/31/19 01/06/22 History mg-800 mg-165 mg chewable tablet (Pepcid Complete) calcium carbonate 600 mg calcium 1,200 mg PO DAILY 01/27/20 01/06/22 History (1,500 mg) tablet (Calcium) fiber 1 cap PO BID 01/27/20 01/06/22 History glucosamine sulfate 750 mg tablet 750 mg PO BID 01/27/20 01/06/22 History ezetimibe 10 mg tablet See Rx Instructions .Route 05/30/21 01/06/22 Rx .COMPLEX #90 tabs pantoprazole 20 mg tablet,delayed 20 mg PO QAM #90 tabs 08/12/21 01/06/22 Rx release quinapril 20 mg tablet See Rx Instructions .Route 09/25/21 01/06/22 Rx .COMPLEX #90 tabs rosuvastatin 40 mg tablet See Rx Instructions .Route 10/18/21 01/06/22 Rx .COMPLEX #90 tabs aspirin 81 mg tablet,delayed 81 mg PO DAILY 10/29/21 01/06/22 History release (Adult Low Dose Aspirin) gabapentin 300 mg capsule 300 mg PO QHS #90 caps 01/08/22 01/16/22 Rx Patient hx anesthesia problems: none Family hx anesthesia problems: none Results Review: All pre-operative results and documents have been reviewed as part of the pre-operative evaluation. [facility] Past Medical History Medical History Abnormal digestive system diagnostic imaging Chronic constipation Degenerative joint disease of right knee Diverticulosis DVT prophylaxis GERD (gastroesophageal reflux disease) HLD (hyperlipidemia) HTN (hypertension) Hx of colonic polyps Hypertension Low bone mass Lung nodules (~07/20/18) CT 01/20/19 all nodules stable (-2018: ct 4mm RML nodule. repeat in 6 months unchanged. no further surveillance needed) Obesity Surgical History Surgical History H/O colonoscopy with polypectomy H/O eye surgery (~10/28/19) History of appendectomy 12/2001 History of carpal tunnel release (~07/26/13) History of colonoscopy (~05/15/14) repeat 5-7 years History of detached retina repair History of tonsillectomy (~1967) History of total abdominal hysterectomy and bilateral salpingo-oophorectomy 03/31/02 [facility]/BSO--irregular bleeding/dysmenorrhea Hx of section S/P total knee arthroplasty 12/07/19 rt knee 01/31/20 lt knee Family History Family History Mother Family history of elevated blood lipids Diabetes mellitus Hypertension Patient's mother is Father Family history of cardiovascular disease Cardiomyopathy Heart muscle disorder caused by another medical condition Grandparent Acute myocardial infarction Daughter Thyroid cancer Social History Social History Social History: she lives with her . Her is a durable power tax associate attorney for healthcare. She is retired from [employer]. she has 2 children. She desires to be a full code. No alcohol no tobacco or illicit drugs. Years smoked: 4 Smoking status: Never smoker Tobacco type: cigarettes Second hand tobacco smok
[2022-01-16 13:21] VITALS: BP 116/72; PULSE 66; RESP 21; O2SAT 96
[2022-01-16 13:31] VITALS: BP 119/77; PULSE 68; RESP 21; O2SAT 96
[2022-01-16 13:41] VITALS: BP 122/80; PULSE 61; RESP 17; O2SAT 98
[2022-01-16 13:51] VITALS: BP 137/80; PULSE 60; RESP 17; O2SAT 100
--- NOTE | 2022-01-16 14:13 | SUR.PHASEII ---
pt awaiting cmv driver to arrive.
== END 2022-01-16 14:19 | disposition home or self-care (01) ==
PROVIDERS: PCP Family Medicine; Visit Provider Internal Medicine Gastroenterology
PROC: 0DJD8ZZ Inspection of Lower Intestinal Tract, Via Natural or Artificial Opening Endoscopic (ICD-10-PCS; CPT 45378; principal; 2022-01-16 13:00)
DX: Z12.11 Encounter for screening for malignant neoplasm of colon (principal); K57.30 Diverticulosis of large intestine without perforation or abscess without bleeding; K56.699 Other intestinal obstruction unspecified as to partial versus complete obstruction; Z79.82 Long term (current) use of aspirin; Z86.718 Personal history of other venous thrombosis and embolism; I10 Essential (primary) hypertension; E78.5 Hyperlipidemia, unspecified; E66.9 Obesity, unspecified; Z68.30 Body mass index [BMI] 30.0-30.9, adult
CPT/HCPCS: G0121; J2704; J7120

== ENCOUNTER 2022-10-07 13:43 | Outpatient (CLI) | payer MEDICARE, SELFPAY ==
[2022-10-07 14:17] LABS: Kit Draw Collected
== END 2022-10-07 13:44 | disposition home or self-care (01) ==
LOC: ANHGOSHLAB 13:47
PROVIDERS: PCP Family Medicine; Visit Provider Family Medicine
DX: K76.0 Fatty (change of) liver, not elsewhere classified (principal); R73.9 Hyperglycemia, unspecified; Z11.59 Encounter for screening for other viral diseases
CPT/HCPCS: 36415

== ENCOUNTER 2022-11-25 19:03 | Emergency (ER) | payer MEDICARE, SELFPAY ==
[2022-11-25 19:10] VITALS: BP 124/80; PULSE 77; RESP 21; TEMP 36.3; O2SAT 98
--- NOTE | 2022-11-25 19:13 | ED.SKABFB ---
HPI - Skin/Abscess/Foreign Bdy General Chief complaint: Skin/Abscess/Foreign Body Stated complaint: INSECT BITE Time Seen by Provider: 11/25/22 19:12 Source: patient, RN notes reviewed and old records reviewed Mode of arrival: ambulatory Limitations: no limitations History of Present Illness HPI narrative: 72 year old female presents to express care with complaints of being bit by a bug on Thursday under her left axilla along chest wall area, red lesion noted, not sure if she was stung or bit but has redness that has increased to include her entire right breast which is swollen, red, warm, and itchy. Patient reports that she has been taking Benadryl for the past 2 day that doesn't seem to of helped much and also has used Triamcinolone ointment to right breast. Patient denies any shortness of breath or any difficulty swallowing. Patient denies any known fevers, chills or sweats. MD complaint: insect bite/sting and other (cellulitis) Onset (ago): day(s) (2 days ago) Severity scale (1-10): 3 Treatments prior to arrival: Benadryl Related Data Home Medications Medication Instructions Recorded Confirmed cholecalciferol (vitamin D3) 25 2,000 unit PO DAILY 03/23/19 11/25/22 mcg (1,000 unit) capsule multivitamin 1 tablet PO DAILY 04/18/19 11/25/22 famotidine-Ca carb-mag hydrox 10 1 tablet PO DAILY 10/31/19 11/25/22 mg-800 mg-165 mg chewable tablet (Pepcid Complete) calcium carbonate 600 mg calcium 1,200 mg PO DAILY 01/27/20 11/25/22 (1,500 mg) tablet (Calcium) fiber 1 cap PO BID 01/27/20 11/25/22 glucosamine sulfate 750 mg tablet 750 mg PO BID 01/27/20 11/25/22 aspirin 81 mg tablet,delayed 81 mg PO DAILY 10/29/21 11/25/22 release (Adult Low Dose Aspirin) hydroxychloroquine 200 mg tablet 200 mg PO DAILY 11/25/22 11/25/22 Allergies Allergy/AdvReac Type Severity Reaction Status Date / Time No Known Allergies Allergy Verified 11/25/22 19:13 Review of Systems Review of Systems: CONSTITUTIONAL: Denies fever, chills, or sweats. CARDIOVASCULAR: Denies chest pain, palpitations, or edema. RESPIRATORY: Denies cough or dyspnea. GASTROINTESTINAL: Denies abdominal pain, nausea, vomiting SKIN: Reports redness and swelling to right upper axilla and right breast. Denies purulent drainage, vesicles, bullae, numbness, pain beyond proportion MUSCULOSKELETAL: Denies myalgia. NEUROLOGIC: Denies headache, numbness All systems reviewed & are unremarkable except as noted in HPI and below PMFSH Past Medical History Medical History Abnormal digestive system diagnostic imaging Chronic constipation Degenerative joint disease of right knee Diverticulosis DVT prophylaxis Generalized osteoarthritis of multiple sites GERD (gastroesophageal reflux disease) Hives HLD (hyperlipidemia) HTN (hypertension) Hx of colonic polyps Hypertension Low bone mass Lung nodules (~07/20/18) CT 01/20/19 all nodules stable (-2018: ct 4mm RML nodule. repeat in 6 months -2018 unchanged. no further surveillance needed) Obesity Undifferentiated connective tissue disease Surgical History Surgical History H/O colonoscopy with polypectomy H/O eye surgery (~10/28/19) History of appendectomy 12/2001 History of carpal tunnel release (~07/26/13) History of colonoscopy (~05/15/14) repeat 5-7 years History of detached retina repair History of tonsillectomy (~1967) History of total abdominal hysterectomy and bilateral salpingo-oophorectomy 03/31/02 [facility]/BSO--irregular bleeding/dysmenorrhea Hx of section S/P total knee arthroplasty 12/07/19 rt knee 01/31/20 lt knee Family History Family History Mother Family history of elevated blood lipids Diabetes mellitus Hypertension Patient's mother is Father Family history of cardiovascular disease Cardio
== END 2022-11-25 19:31 | disposition home or self-care (01) ==
PROVIDERS: Emergency Provider Registered Nurse; PCP Family Medicine
DX: N61.0 Mastitis without abscess (principal); L03.313 Cellulitis of chest wall; S20.362A Insect bite (nonvenomous) of left front wall of thorax, initial encounter; W57.XXXA Bitten or stung by nonvenomous insect and other nonvenomous arthropods, initial encounter; M17.11 Unilateral primary osteoarthritis, right knee; K21.9 Gastro-esophageal reflux disease without esophagitis; E78.5 Hyperlipidemia, unspecified; I10 Essential (primary) hypertension; E66.9 Obesity, unspecified; Z96.653 Presence of artificial knee joint, bilateral
CPT/HCPCS: 99213; G0463

== ENCOUNTER → 2023-02-03 09:28 | Outpatient (CLI) | payer MEDICARE, SELFPAY ==
--- NOTE | ~2023-02-03 | XR_ITS ---
Right foot Technique: AP, oblique, and lateral views were obtained. Clinical History: Heel pain Findings: No acute fracture or dislocation is seen. There is hallux valgus with advanced degenerative change at the first metatarsophalangeal joint and sesamoid metatarsal articulations. There are addit ional degenerative changes at the interphalangeal joints of the second digit. Plantar calcaneal spur noted. Soft tissues are unremarkable. Impression: Degenerative changes, as detailed above, worst at the first metatarsophalangeal joint region. Hallux valgus. Reviewed, dictated and finalized at location M. Impression: Degenerative changes, as detailed above, worst at the first metatarsophalangeal joint region. Hallux valgus.
== END ==
PROVIDERS: PCP Physician Assistant; Visit Provider Physician Assistant
DX: M19.071 Primary osteoarthritis, right ankle and foot (principal); M20.11 Hallux valgus (acquired), right foot
CPT/HCPCS: 73630

== ENCOUNTER 2023-10-02 10:34 | Outpatient (CLI) | payer MEDICARE, SELFPAY ==
--- NOTE | ~2023-10-02 | US_ITS ---
EXAMINATION: US soft tissue abdomen DATE: 10/02/2023 10:50 INDICATION: Benign lipomatous neoplasm, unspecified. Left lower quadrant abdominal mass. TECHNIQUE: Multiple grayscale and Doppler ultrasound images of the abdomen were obtained. COMPARISON: CT abdomen and pelvis 07/20/2018 FINDINGS: In the left lower quadrant of the abdomen, there is a ventral hernia containing fat. IMPRESSION: 1. Infraumbilical ventral hernia containing fat to the left of midline. Reviewed, dictated and finalized at location E.
== END 2023-10-02 10:35 ==
LOC: GOSHIMG 10:34
PROVIDERS: PCP Physician Assistant; Visit Provider Obstetrics & Gynecology
DX: K43.9 Ventral hernia without obstruction or gangrene (principal); D17.9 Benign lipomatous neoplasm, unspecified
CPT/HCPCS: 76705

== ENCOUNTER 2024-06-23 10:59 | Outpatient (CLI) | payer MEDICARE, SELFPAY ==
--- NOTE | ~2024-06-23 | DEXA_ITS ---
Bone Density Report Name: MORIAH ASHFORD Age: 74 Sex: Female Ethnicity: White Date of : 1950 Indication: osteopenia; height loss; hysterectomy; Referring Provider: SOCRATES WHITE Study: Bone densitometry was performed. Exam Date: June 23, 2024 Accession number: [id number] Bone Density: Region BMD T-score Z-score Classification AP Spine(L1-L4) 1.084 0.3 2.6 Normal Femoral Neck (Left) 0.619 -2.1 -0.1 Osteopenia Total Hip (Left) 0.829 -0.9 0.7 Normal Femoral Neck (Right) 0.556 -2.6 -0.7 Osteoporosis Total Hip (Right) 0.767 -1.4 0.2 Osteopenia Total Hip Mean 0.798 -1.2 0.5 Osteopenia World Health Organization criteria for BMD impression classify patients as: Normal (T-score at or above -1.0), Osteopenia (T-score between -1.0 and -2.5), or Osteoporosis (T-score at or below -2.5). 10-year Fracture Risk: FRAX not reported because: Some T-score for Spine Total or Hip Total or Femoral Neck at or below -2.5 Previous Exams: Region Exam Age BMD T-score BMD Change BMD Change Date g/cm2 vs Baseline vs Previous AP Spine (L1-L4) 06/23/2024 74 1.084 0.3 0.045 (4.3%)# 0.012 (1.2%)# 07/11/2021 71 1.072 0.2 0.032 (3.1%)* 0.064 (6.4%)* 01/26/2019 69 1.007 -0.4 -0.032 (-3.1%) -0.031 (-3.0%) 11/18/2016 66 1.038 -0.1 -0.001 (-0.1%) -0.001 (-0.1%) 04/18/2014 64 1.039 -0.1 Total Hip(Left) 06/23/2024 74 0.829 -0.9 -0.108 (-11.5% -0.014 (-1.7%) 07/11/2021 71 0.843 -0.8 -0.094 (-10.0% -0.019 (-2.2%) 01/26/2019 69 0.861 -0.7 -0.075 (-8.0%) -0.024 (-2.7%) 11/18/2016 66 0.885 -0.5 -0.052 (-5.5%) -0.052 (-5.5%) 04/18/2014 64 0.936 0.0 Total Hip(Right) 06/23/2024 74 0.767 -1.4 -0.058 (-7.0%) 0.075 (10.8%)# 07/11/2021 71 0.693 -2.0 -0.133 (-16.1% -0.088 (-11.3% 01/26/2019 69 0.781 -1.3 -0.044 (-5.4%) -0.011 (-1.4%) 11/18/2016 66 0.792 -1.2 -0.033 (-4.0%) -0.033 (-4.0%) 04/18/2014 64 0.825 -1.0 *Denotes significance at 95% confidence level, LSC for AP Spine = 0.022 g/cm2, LSC for Total Hip = 0.027 g/cm2 # Denotes dissimilar scan types or analysis methods Clinical Information Provided by Patient: Has used the following medications: Vitamin D, Calcium Has the following medical conditions: Hysterectomy Patient maximum height was 64 No regular weight bearing exercise Drinks caffeinated beverages Onset of menses at age 18 Number of children 2 Impression: The patient has osteoporosis, based on the Right Femoral Neck T-score. No significant bone loss was observed. Discussion: INCREASED RISK OF FRACTURE. BONE DENSITY IS UNDESIRABLY LOW AT ONE OR MORE SKELETAL SITES, CONSISTENT WITH POSTMENOPAUSAL OSTEOPOROSIS. This patient's lowest T-score meets the World Health Organization's (WHO) criteria for osteoporosis at one or more sites (T-score -2.5 or below). In untreated patients, the risk of osteoporotic fracture increases approximately two-fold for each 1.0 SD decrease in T-score. Low bone density is not the only risk factor for fracture; also consider factors such as patient's age, frailty or poor health, risk of falling, risk of injury, previous osteoporotic fracture, family history of osteoporosis, cigarette smoking, low body weight, etc. Not everyone with low bone mineral density has osteoporosis; osteomalacia and other metabolic bone disorders should also be considered. Patients who have osteoporosis should be evaluated for specific diseases and conditions (secondary causes) that may cause or contribute to bone loss. The [place] [employer] (AACE) and National Osteoporosis Foundation (NOF) recommend pharmacologic intervention for all postmenopausal women whose T-score is in this range. The patient should follow a healthful lifestyle (good nutrition with adequate calcium and vitamin D, and appropriate weight-bearing exercise). Follow-Up: Consider a repeat BMD and Vertebral Fracture Assessment (VFA) exam in 2 years or sooner if medically necessary, to reassess this patient's status. Reported by: DAMON on 06/23/2024 11:33:00 AM. Reviewed, dictated and finalized at location [facility]
--- OUTSIDE RECORDS SUMMARY | 2024-06-23 12:38 | XMS_ITS | Clinical Summary ---
Author Organization [facility] Address [address] [place] [address] Care Team Providers Care Chute Puller Name Role Phone Leeanna Salinas MD Primary Care Provider + Evelyn Faith PT Unavailable Allergies No known active allergies Medications diclofenac DR (VOLTAREN) 75 mg EC tabletIndicatio ns:Osteoarthrit is Take 1 tablet (75 mg total) by mouth 2 (two) times a day 3 9 Active rosuvastatin (CRESTOR) 40 mg tabletIndicatio ns:hyperlipidem ia Take 1 tablet (40 mg total) by mouth nightly [address] (PROTONIX) 20 mg EC tabletIndicatio ns:gerd Take 1 tablet (20 mg total) by mouth daily with lunch 2 9 Active ezetimibe (ZETIA) 10 mg tabletIndicatio ns:hyperlipidem ia Take 1 tablet (10 mg total) by mouth nightly 2 9 Active glucosam-chond- tun4-W-jzlv-bor 531-789-20-0.5 mg tabletIndicatio ns:supplement Take 1 tablet by mouth 2 (two) times a day Active calcium-vits X3-O-N7-mineral s 166.75 mg- 166.75 unit capsuleIndicati ons:Prevention of Vitamin D Deficiency Take 1 tablet by mouth 2 (two) times a day Active aspirin 81 mg capsuleIndicati ons:prevention of thrombosis Take 81 mg by mouth nightly Active multivitamin capsuleIndicati ons:Vitamin Deficiency Prevention Take 1 capsule by mouth trimmer sawyer before breakfast Active cholecalciferol (VITAMIN D-3) 2000 unit capsuleIndicati ons:supplement Take 1 capsule (2,000 Units total) by mouth trimmer sawyer before breakfast Active famotidine-Ca carb-mag hydrox (Pepcid Complete) 10-800-165 mg chewable tablet Take 1 tablet by mouth every 12 (twelve) hours Active amLODIPine (NORVASC) 5 mg tablet Take 1 tablet (5 mg total) by mouth daily 4 Active irbesartan (AVAPRO) 150 mg tablet Take 1 tablet (150 mg total) by mouth daily Active gabapentin (NEURONTIN) 300 mg capsule Take 1 capsule (300 mg total) by mouth 3 (three) times a day Active psyllium seed, with sugar, (FIBER SUPPLEMENT ORAL) Take 1 tablet by mouth 2 (two) times a day Active vit C,Q-Wz-ehefw-eddie tein-zeaxan (PreserVision AREDS-2) 250-90-40-1 mg tablet,chewable every 12 hours Active cyclobenzaprine (FLEXERIL) 5 mg tablet Take 1 tablet (5 mg total) by mouth 2 (two) times a day as needed for muscle spasms 60 tablet 2 4 Active Active Problems Problem Noted Date Diagnosed Date 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 Her only symptom at this time includes her bilateral knee pain, which only started following bilateral knee replacements. Continue to monitor, but no official diagnosis of MCTD to date. Atrophy of muscle of multiple sites 12/21/2023 Assessment & Plan (12/21/2023 7:49 PM CDT): Checking MRI of left thigh. 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 She has pain and 1 cm circumference abnormality between her left leg (smaller) and her right leg, which possibly suggests muscle atrophy/necrosis. Discussed with radiology and they think they can get an MRI of her left thigh to evaluate for myositis without too much artifact from the knee replacement. Primary osteoarthritis of both knees 07/01/2019 Overview (07/01/2019): Added automatically from request for surgery [id number] Assessment & Plan (12/21/2023 7:50 PM CDT): S/p bilateral replacement, has persistent pain. Evaluated by Ortho who specializes in revisions, had bone scan and no issues with the prostheses. Encounters Date Type Department Care Team Description 06/16/2024 10:30 AM MANAGEMENT DEVELOPER Therapy [facility] [address] [place] [phone] Evelyn Faith, PT Bilateral primary osteoarthritis of knee (Primary Dx) 06/06/2024 10:30 AM MANAGEMENT DEVELOPER Therapy [facility] [address] [place] [phone] Octavio Faitha, PT Bilateral primary osteoarthritis of knee (Primary Dx) 05/31/2024 9:15 AM MANAGEMENT DEVELOPER Therapy [facility] [address] [place] [phone] FaithOctavioa, PT Bilateral primary osteoarthritis of knee (Primary Dx) 05/31/2024 Plan of Care Documentation [facility] [address] [place] [phone] from Last 3 Months Immunizations Immunization Administration Dates Next Due Influenza, Quadrivalent, Hig h Dose, Preservative Free, Intrr 12/19/2021 Influenza, Quadrivalent, Rec ombinant, Egg Free, Preservative Free, Intramuscular 02/25/2021,12/29/2018 Influenza, Quadrivalent, Split, Intramuscular Influenza, Quadrivalent, Spl it, Preservative Free, Intramuscular 02/02/2020,01/25/2018 Pneumococcal Conjugate Pcv20 04/09/2023 Surgical History Surgery Date Site/Laterality Comments TONSILLECTOMY 04/20/1967 - 04/19/1968 APPENDECTOMY 04/20/2001 - 04/19/2002 COLONOSCOPY SECTION 04/20/1979 - 04/19/1980 1972 EYE SURGERY 07/06/2019 Bilateral retinal detachment (OD); retinal tear (OS) KNEE ARTHROPLASTY 04/20/2020 - 04/19/2021 Bilateral [place], [place] Medical History Medical History Date Comments Hypercholesteremia Hypertension Osteoarthritis Obesity Family History Medical History Relation Name Comments Blood Clot Daughter Thyroid cancer Daughter Thyroid disease Daughter Heart disease Father Diabetes Mother FALL/HIT HEAD Other [place] Anesthesia problems Neg Hx Relation Name Status Comments Daughter of blood c lot to heart at age 37 Father Mother Other [place] Social History Tobacco Use Types Packs/Day Years Used Date Smoking Tobacco: Never Smokeless Tobacco: Never Alcohol Use Standard Drinks/Week Comments Yes 2 (1 standard drink = 0.6 oz pur e alcohol) AUDIT-C Answer Date Recorded Q1: How often do you have a drink containing alcohol? 4 or more times a week 07/22/2023 Q2: How many drinks containi ng alcohol do you have on a typical day when you are drinking? 1 or 2 Q3: How often do you have si x or more drinks on one occasion? Never 07/22/2023 Comments No Sex and Gender Information Value Date Recorded Sex Assigned at Not on file Legal Sex Female 8:46 PM MANAGEMENT DEVELOPER Gender Identity Not on file Sexual Orientation Not on file Obstetrics History Last Filed Vital Signs Vital Sign Reading Time Taken Comments Blood Pressure 120/60 12/17/2023 11:35 AM CDT Pulse 78 12/17/2023 11:35 AM CDT Temperature 36.7 C (98.1 F) 12/17/2023 11:35 AM CDT Respiratory Rate 16 12/17/2023 11:35 AM CDT Oxygen Saturation 97% 12/17/2023 11:35 AM CDT Inhaled Oxygen Concentration - - Weight 81.9 kg (180 lb 9.6 oz) 12/17/2023 11:35 AM CDT Height 160 cm (5' 2.99 ) 12/17/2023 11:35 AM CDT Body Mass Index 32 12/17/2023 11:35 AM CDT Plan of Treatment Health Maintenance Due Date Last Done Comments Colon Cancer Screening-Colonoscopy 1950 Depression Screening 1950 Osteoporosis Screening-Bone Density Scan 1950 DTaP/Tdap/Td Vaccine (1 - Tdap) 01/01/1963 Hepatitis B Screening 01/01/1970 Zoster Vaccine (1 of 2) 01/01/2002 Well Visit 65+ 01/01/2017 Fall Risk Assessment 08/11/2020 08/12/2019 Covid-19 Vaccine (2023-2 5 season) 2023 02/09/2021, 07/08/2020, 06/17/2020 Breast Cancer Screening-Mammogram 03/09/2025 03/09/2024, 03/03/2023, 01/27/2022, Additional history exists Hepatitis C Screening Completed 08/23/2015 Pneumococcal vaccine 65+ Completed 04/09/2023 Influenza Vaccine Completed 10/19/2023, , 02/25/2021, Additional history exists Procedures Procedure Name Priority Date/Time Associated Diagnosis Comments SCREENING MAMMOGRAM BILATERAL W ALEN Schedule Routine, Read Routine (OP Routine) 03/09/2024 11:01 AM MANAGEMENT DEVELOPER Screening mammogram, encounter for SERUM HEPATITIS C AB Routine 08/23/2015 3:15 AM CDT from Last 3 Months or Most Recently Relevant to Health Maintenance Results * Screening Mammogram Bilateral W Alen (03/09/2024 11:01 AM MANAGEMENT DEVELOPER) Anatomical Region Laterality Modality Breast Bilateral Mammography Narrative 03/10/2024 9:49 AM MANAGEMENT DEVELOPER Mammogram Technique: Bilateral Digital Breast Tomosynthesis, Bilateral C-view 2D Screening mammogram. Views obtained: bilateral craniocaudal and bilateral mediolateral oblique. Computer Aided Detection was performed. Mammogram Findings: The present examination has been compared to prior imaging studies performed at [facility] on 10/29/2020, 01/27/2022 and 03/03/2023. There are scattered areas of fibroglandular density. There is no suspicious abnormality in either breast. Impression: There is no mammographic evidence of malignancy. Annual screening mammography is recommended. OVERALL FINAL ASSESSMENT: BI-RADS CATEGORY 1: Negative. Procedure Note Madeleine Martel MD - 03/10/2024 Mammogram Technique: Bilateral Digital Breast Tomosynthesis, Bilateral C-view 2D Screening mammogram. Views obtained: bilateral craniocaudal and bilateral mediolateral oblique. Computer Aided Detection was performed. Mammogram Findings: The present examination has been compared to prior imaging studies performed at [facility] on 10/29/2020, 01/27/2022 and 03/03/2023. There are scattered areas of fibroglandular density. There is no suspicious abnormality in either breast. Impression: There is no mammographic evidence of malignancy. Annual screening mammography is recommended. OVERALL FINAL ASSESSMENT: BI-RADS CATEGORY 1: Negative. us Self Screening Mammogram IMG MAMMO PROCEDURES Fi nal Result * Serum Hepatitis C ab (08/23/2015 3:15 AM CDT) HCV ab Negative NEG HISTORICAL RESULTS Serum 08/23/2015 3:15 AM CDT Narrative HISTORICAL RESULTS - 08/24/2015 9:12 AM CDT Interpretive Data If confirmation is required, call Laboratory Customer Service to request sample to be sent to [facility] for Hepatitis C Virus (HCV) RNA Detection and Quantitation by Real-Time Reverse Veneer Sawyer-PCR (RT-PCR). Current interpretive data was last revised on 2011 us Historical Provider LAB BLOOD ORDERABLES Ashlee ingram Result HISTORICAL RESULTS from Last 3 Months or Most Recently Relevant to Health Maintenance Insurance MEDICARE [employer] MEDICARE [employer] MEDICARE [employer] Care Teams Chute Puller Relationship Specialty Start Date End Date Leeanna Salinas MD PCP - General 08/28/17 Evelyn Faith, PT [phone] [address] Physical Therapist Physical Therapy 05/23/24
--- OUTSIDE RECORDS SUMMARY | 2024-06-23 12:38 | XMS_ITS | Clinical Summary ---
Author Organization [facility] Address [address] [address] Care Team Providers Care Nuclear Physics Teacher Name Role Phone Leeanna Salinas MD Primary Care Provider [phone] Source Comments [facility],non-owned Affiliates and Associated Physician Practices is amultiple site organization consisting of ambulatory clinics and hospital sitesin [place], [place], [place] and [place]. This disclosure is being madepursuant to the Care Everywhere program and may not contain all information available regarding this patient. Last updated 18.[facility] Buy.On.Social Social History Tobacco Use Types Packs/Day Years Used Date Smoking Tobacco: Never Assessed Sex and Gender Information Value Date Recorded Sex Assigned at Not on file Gender Identity Not on file Sexual Orientation Not on file Plan of Treatment Health Maintenance Due Date Last Done Comments BONE DENSITY TESTING 1950 COLOGUARD (AGES 45-75) - COL ON CA SCREENING 1950 COLON MONITORING 1950 COLONOSCOPY - COLON CA SCREENING 1952 CT COLONOGRAPHY - COLON CA SCREENING 1950 Colorectal Cancer Screening 1950 FIT - COLON CA SCREENING 1950 FLEX SIG - COLON CA SCREENING 1950 LIPID TESTING 1950 MAMMOGRAM 1950 MEDICARE AWV 12 MONTHS 1950 HEPATITIS C SCREENING 12/28/1969 DTAP/TDAP/TD VACCINES (1 - Tdap) 01/01/1971 PNEUMOCOCCAL VACCINE 50+ (1 of 1 - PCV) 01/01/2002 ZOSTER VACCINE (1 of 2) 01/01/2002 COVID-19 VACCINE (1 - 2023-2 5 season) 2023 INFLUENZA VACCINE (#1) 2023 DEPRESSION SCREENING 04/20/2024 Respiratory Syncytial Virus (RSV) Vaccine Pt: or over 60 yrs (1 - 1-dose 75+ series) 01/01/2027 HEPATITIS B VACCINE Aged Out No longe r eligible based on patient's age to complete this topic HIB VACCINE Aged Out No longer eligi ble based on patient's age to complete this topic HPV VACCINE Aged Out No longer eligi ble based on patient's age to complete this topic MENINGOCOCCAL (Group B) VACCINE Aged Out No longer eligible based on patient's age to complete this topic MENINGOCOCCAL VACCINE Aged Out No rachel alvarado eligible based on patient's age to complete this topic Care Teams Nuclear Physics Teacher Relationship Specialty Start Date End Date Leeanna Salinas MD [address] [place] [address] PCP - General 07/12/20
--- OUTSIDE RECORDS SUMMARY | 2024-06-23 12:38 | XMS_ITS | Clinical Summary ---
Author Organization [facility] Address [address] [place] [address] Care Team Providers Care Nursing Educator Name Role Phone Leeanna Salinas MD Primary Care Provider [phone] Allergies No known active allergies Medications ezetimibe 10 MG tablet Take 1 tablet (10 mg total) by mouth daily. 03/14/2019 Active quinapril 20 MG tablet Take 20 mg by mouth daily. 03/28/2019 Active pantoprazole EC 40 MG tablet Take 20 mg by mouth daily. 02/21/2019 Active Multiple Minerals-Vitami ns (BONE ESSENTIALS) Cap Take 1 tablet by mouth 2 (two) times daily. Active Misc Natural Products (GLUCOS-CHONDRO IT-MSM COMPLEX) Tab Take 1 tablet by mouth 2 (two) times daily. Active meclizine 25 MG tablet Take 1 tablet (25 mg total) by mouth 3 (three) times daily as needed. 10 tablet 04/20/2021 Active dicyclomine (BENTYL) 20 MG tablet Take 1 tablet (20 mg total) by mouth every 6 (six) hours as needed (abd cramping). 30 tablet 12/11/2021 Active multi vitamin/mineral s (THERA-M ENHANCED) tablet Take 1 tablet by mouth daily. Active aspirin 81 MG chewable tablet Chew 1 tablet (81 mg total) by mouth daily. Active vitamin D3 (VITAMIN D3, CHOLECALCIFEROL ,) 25 mcg tablet Take 4 tablets (4,000 Units total) by mouth daily. Active famotidine-calc ium carbonate-magne sium hydroxide (PEPCID COMPLETE) 10-800-165 MG Chew Tab every 12 (twelve) hours. Active Glucosamine HCl ([employer] GLUCOSAMINE) 1500 MG Tab every 12 (twelve) hours. Active diclofenac EC (VOLTAREN) 75 MG tablet Take 1 tablet (75 mg total) by mouth 2 (two) times daily. Active gabapentin (NEURONTIN) 300 MG capsule Take 1 capsule (300 mg total) by mouth 3 (three) times daily. Active Rosuvastatin Calcium 40 MG CAPSULE SPRINKLE daily. Active amLODIPine (NORVASC) 5 MG tablet Take 1 tablet (5 mg total) by mouth daily. 05/25/2023 Active irbesartan (AVAPRO) 150 MG tablet Take 1 tablet (150 mg total) by mouth daily. Active Calcium Carbonate-Vit D-Min (CALCIUM 1200 OR) Calcium (MCHA Active Family History Medical History Relation Comments Cancer Daughter Diabetes Daughter Heart Disease Father Relation Status Comments Daughter Father Social History Tobacco Use Types Packs/Day Years Used Date Smoking Tobacco: Never Passive Smoke Exposure: Past Smokeless Tobacco: Never Tobacco Cessation:Counseling Given: No Alcohol Use Standard Drinks/Week Comments Yes 8.3 (1 standard drink = 0.6 oz p ure alcohol) AUDIT-C Answer Date Recorded Frequency of Alcohol Consumption Never 11/05/2019 Average Number of Drinks Not on file 020 Frequency of Binge Drinking Not on file 10/18 PHQ-2 Answer Date Recorded Patient Health Questionnaire-2 Score 0 08/19/2023 Comments No Sex and Gender Information Value Date Recorded Sex Assigned at Not on file Legal Sex Female 7:39 PM CDT Gender Identity Not on file Sexual Orientation Not on file Last Filed Vital Signs Vital Sign Reading Time Taken Comments Blood Pressure 126/78 08/19/2023 5:36 PM CDT Pulse 76 08/19/2023 5:36 PM CDT Temperature 36.4 C (97.6 F) 12/11/2021 2:04 PM CDT Respiratory Rate 18 12/11/2021 2:04 PM CDT Oxygen Saturation 98% 08/19/2023 5:36 PM CDT Inhaled Oxygen Concentration - - Weight 83 kg (183 lb) 08/19/2023 5:36 PM CDT Height 160 cm (5' 3 ) 12/11/2021 1:35 PM CDT Body Mass Index 32.42 12/11/2021 1:35 PM CDT Plan of Treatment Health Maintenance Due Date Last Done Comments Colorectal Cancer Screening Colonoscopy (10 Years) 1950 Hepatitis C 01/01/1970 DTaP, Tdap and Td Vaccines (1 - Tdap) 01/01/1971 Mammogram Screening 1992 Zoster Vaccines (1 of 2) 01/01/2002 Annual Medicare Wellness Visit 01/01/2017 Dexa Scan (General) 01/01/2017 COVID-19 Vaccine ( - season) 2023 Influenza Adult (#1) 2024 02/25/2021, 02/02/2020, 12/29/2018, Additional history exists RSV Immunization or 60+ Years (1 - 1-dose 75+ series) 01/01/2027 Pneumococcal Vaccine: 65+ Years Completed 04/09/2023 Meningococcal B Vaccine Aged Out No l onger eligible based on patient's age to complete this topic Meningococcal Vaccine Aged Out No rachel alvarado eligible based on patient's age to complete this topic RSV Immunizations Under 20 Months Aged Out No longer eligible based on patient's age to complete this topic Insurance MEDICARE Care Teams Nursing Educator Relationship Specialty Start Date End Date Leeanna Salinas MD PCP - General FAMILY PRACTICE 11/05/19
--- OUTSIDE RECORDS SUMMARY | 2024-06-23 12:38 | XMS_ITS ---
Author Organization [facility] Address [address] [place] [address] Care Team Providers Care Embroidery Assistant Name Role Phone Leeanna Salinas MD Primary Care Provider Unav ailable Maryuri Armstrong Unavailable [phone] [facility]igration, Provider Unavailable Unavailab le [facility] Encounter Medications Medication SIG (Take, Route, Frequency, Duration) Notes Start Date End Date Status PreserVision AREDS 2 ANTIOXIDANT MULTIPLE VITAMINS AND MINERALS 1 TAB(S) CHEWED 2 TIMES A DAY *Please review and pick correct strength-formulatio n from Medispan options. If intended option is not shown, discontinue and re-order from Quick Search* Active Pepcid Complete 10-800-165 MG 1 tab(s) orally every 12 hours Active CALCIUM (MCHA *Please review f or potential replacement for e-prescription and drug interaction check* Active Irbesartan 150 MG 1 tab(s) orally once a day Active Rosuvastatin Calcium 40 MG 1 tab(s) orally once a day for 30 day(s) Active Multivitamin VITAMIN B COMPLEX WITH C AND FOLIC ACID 1 TAB(S) ORALLY ONCE A DAY *Please review and pick correct strength-formulatio n from Medispan options. If intended option is not shown, discontinue and re-order from Quick Search* Active Glucosamine HCl 1500 MG 1 tab(s) orally bid Active Gabapentin 300 MG 1 cap(s) orally 3 times a day for 30 day(s) takes three times in day Active Vitamin D3 50 MCG 1 TAB(S) ORALLY ONCE A DAY for 30 DAY(S) *Please review and pick correct strength-formulatio n [facility]. If intended option is not shown, discontinue and re-order from Quick Search* Active Diclofenac Sodium 75 MG 1 tab(s) orally 2 times a day for 30 day(s) takes twice a day Active Pantoprazole Sodium 40 MG 1 ea orally once a day Active Ezetimibe 10 MG 1 tab(s) orally once a day Active Aspirin 81 MG 1 tab(s) orally once a day Active Encounters Encounter Location Date Provider Diagnosis [address] [address] 10/03/2023 Provider [facility]-Migration Plan Of Treatment No Information Progress Notes * EDGAR СветланаDOB:1950 (74 yo F)Acc No.[id number]:10/03/2023 Patient: Светлана ASHLEY Provider: Nabil Penn :1950 A ge:73 Y S ex:Female Date:10/03/2023 Address:[address] [place], [place] [phone] Pcp:Leeanna Salinas MD Subjective: * Chief Complaints: * 1 . [facility]. * Medical History: * Medications: T aking Irbesartan 150 MG Tablet 1 tab(s) orally once a day , Taking PreserVision AREDS 2 ANTIOXIDANT MULTIPLE VITAMINS AND MINERALS TABLET, CHEWABLE 1 TAB(S) CHEWED 2 TIMES A DAY , Notes to Pharmacist: *Please review and pick correct strength- formulation from [employer] options. If intended option is not shown, discontinue and re-order from Quick Search*, Taking CALCIUM (MCHA , Notes to Pharmacist: *Please review for potential replacement for e-prescription and drug interaction check*, Taking Pantoprazole Sodium 40 MG Tablet Delayed Release 1 ea orally once a day , Taking Ezetimibe 10 MG Tablet 1 tab(s) orally once a day , Taking Aspirin 81 MG Tablet Delayed Release 1 tab(s) orally once a day , Taking Multivitamin VITAMIN B COMPLEX WITH C AND FOLIC ACID TABLET 1 TAB(S) ORALLY ONCE A DAY , Notes to Pharmacist: *Please review and pick correct strength-formulation from [employer] options. If intended option is not shown, discontinue and re-order from Quick Search*, Taking Glucosamine HCl 1500 MG Tablet 1 tab(s) orally bid , Taking Gabapentin 300 MG Capsule 1 cap(s) orally 3 times a day , Notes to Pharmacist: takes three times in day, Taking Vitamin D3 50 MCG TABLET 1 TAB(S) ORALLY ONCE A DAY , Notes to Pharmacist: *Please review and pick correct strength-formulation from Medispan options. If intended option is not shown, discontinue and re-order from Quick Search*, Taking Diclofenac Sodium 75 MG Tablet Delayed Release 1 tab(s) orally 2 times a day , Notes to Pharmacist: takes twice a day, Taking Rosuvastatin Calcium 40 MG Tablet 1 tab(s) orally once a day , Taking Pepcid Complete 10-800-165 MG Tablet Chewable 1 tab(s) orally every 12 hours Objective: * Vitals: Assessment: Plan: * Treatment: * Billing Information: * Visit Code: * Procedure Codes: * Electronic signature of Tari SALEEM-Migration on 06/23/2024 at 12:38 PM ARTIFICIAL INSEMINATOR Sign off status: Pending * Provider: Nabil dallas Migration Date: 0 10/03/2023 Generated for Chato espinoza/Ale/Fausto on: 0 06/23/2024 12:38 PM ARTIFICIAL INSEMINATOR
--- OUTSIDE RECORDS SUMMARY | 2024-06-23 12:38 | XMS_ITS | Patient Health Record ---
Author Organization [facility] Address [address] [place] [address] Care Team Providers Care Embedded Systems Software Developer Name Role Phone Brad GOMEZ, Leeanna Primary Care Provider Joey montana Patti Maryuri Unavailable [phone] ZZ-Migration, Provider Unavailable Unavailab le Allergies No Known Allergies Reason For Referral No Information Medications Medication SIG (Take, Route, Frequency, Duration) Notes Start Date End Date Status GABAPENTIN 300 mg 1 cap(s) orally 3 times a day for 30 day(s) takes three times in day Active GLUCOSAMINE hydrochloride 1500 mg 1 tab(s) orally bid Active VITAMIN D3 50 mcg 1 tab(s) orally once a day for 30 day(s) Active Vitamin D3 50 MCG 1 TAB(S) ORALLY ONCE A DAY for 30 DAY(S) *Please review and pick correct strength-formulatio n from Medispan options. If intended option is not shown, discontinue and re-order from Quick Search* Active Diclofenac Sodium 75 MG 1 tab(s) orally 2 times a day for 30 day(s) takes twice a day Active Rosuvastatin Calcium 40 MG 1 tab(s) orally once a day for 30 day(s) Active ROSUVASTATIN 40 mg 1 tab(s) orally once a day for 30 day(s) Active Pepcid Complete 10-800-165 MG 1 tab(s) orally every 12 hours Active DICLOFENAC sodium 75 mg 1 tab(s) orally 2 times a day for 30 day(s) takes twice a day Active PEPCID COMPLETE 800 mg-10 mg-165 mg 1 tab(s) orally every 12 hours Active Irbesartan 150 MG 1 tab(s) orally once a day Active IRBESARTAN 150 mg 1 tab(s) orally once a day Active PreserVision AREDS 2 ANTIOXIDANT MULTIPLE VITAMINS AND MINERALS 1 TAB(S) CHEWED 2 TIMES A DAY *Please review and pick correct strength-formulatio n from Dittit options. If intended option is not shown, discontinue and re-order from Quick Search* Active CALCIUM (MCHA *Please review f or potential replacement for e-prescription and drug interaction check* Active Pantoprazole Sodium 40 MG 1 ea orally once a day Active PRESERVISION AREDS 2 Antioxidant Multiple Vitamins and Minerals 1 tab(s) chewed 2 times a day Active Ezetimibe 10 MG 1 tab(s) orally once a day Active EZETIMIBE 10 mg 1 tab(s) orally once a day Active Aspirin 81 MG 1 tab(s) orally once a day Active PANTOPRAZOLE 40 mg 1 ea orally once a day Active Multivitamin VITAMIN B COMPLEX WITH C AND FOLIC ACID 1 TAB(S) ORALLY ONCE A DAY *Please review and pick correct strength-formulatio n from Dittit options. If intended option is not shown, discontinue and re-order from Quick Search* Active MULTIVITAMIN Vitamin B Complex with C and Folic Acid 1 tab(s) orally once a day Active Glucosamine HCl 1500 MG 1 tab(s) orally bid Active ASPIRIN 81 mg 1 tab(s) orally once a day Active Gabapentin 300 MG 1 cap(s) orally 3 times a day for 30 day(s) takes three times in day Active Immunizations Vaccine Route Administration Date Status Comme nts Influenza Unknown 10/31/2021 Administered Portal Infor mation NOC Pneumovax 23 Unknown 07/16/2017 Administered Portal Information NOC Prevnar 13 Unknown 01/17/2018 Administered Portal I nformation Social History Tobacco Use: Social History Observation Description Date Details (start date - stop date) Never Smoker NA - NA Smoking Smart Form: Question Answer Notes Are you a: never smoker Problems Problem Type SNOMED Code ICD Code Onset Dates Problem Status W/U Status Risk Notes Problem Idiopathic urticaria (59956999) Idiopathic urticaria (L50.1) Active confirmed Problem Generalized skin eruption caused by drug and medicament (disorder) (821352520) Generalized skin eruption due to drugs and medicaments taken internally (L27.0) Active confirmed Problem Essential hypertension (67690631) Essential (primary) hypertension (I10) Active confirmed Problem Allergy status to other drugs, medicaments and biological substances (Z88.8) Active confirmed Encounters Encounter Location Date Provider Diagnosis [facility] - [address] [place] [address] 10/03/2023 Provider ZZ-Migration Plan Of Treatment No Information Insurance Providers Payer Name Payer Address Payer Phone Subscriber Number Group Number Insured Name Patient Relationship to Insured Coverage Start Date Coverage End Date [employer] (Medicare) Attention Claims [address] [place] [id number] [phone] [id number] Светлана Hernández Self - patient is the insured [email or web address] [address] [address] [place] [address] [phone] [id number] Светлана Hernández Self - patient is the insured Medical (General) History Medical History History ICD Code Idiopathic urticaria L50.1 Essential (primary) hypertension I10 Surgical History Surgery Date(Month/Year) tonsillectomy 10/25/1967 natural childbirth 10/25/1971 childbirth 07/30/1979 appendectomy 01/01/2002
--- OUTSIDE RECORDS SUMMARY | 2024-06-23 12:38 | XMS_ITS | Patient Health Summary ---
Author Organization [facility] Address [address] [place] [address] Care Team Providers Care Metal Coater Name Role Phone Leeanna Salinas MD Primary Care Provider [phone] Note from [facility][note 3],non-owned Affiliates and Associated Physician Practices is amultiple site organization consisting of ambulatory clinics and hospital sitesin [place], [place], [place] and [place]. This disclosure is being madepursuant to the Care Everywhere program and may not contain all information available regarding this patient. Last updated 18.[facility] Social History Tobacco Use Types Packs/Day Years Used Date Smoking Tobacco: Never Assessed Sex and Gender Information Value Date Recorded Sex Assigned at Not on file Gender Identity Not on file Sexual Orientation Not on file Care Teams Metal Coater Relationship Specialty Start Date End Date Leeanna Salinas MD [address] [place] [id number] PCP - General 07/12/20
--- OUTSIDE RECORDS SUMMARY | 2024-06-23 12:38 | XMS_ITS | Continuity of Care Document ---
Author Organization [facility] Address [address] [place] [address] Phone Care Team Providers Care Learning Technologist Name Role Phone Fernández OD, Jadon Unavailable Unavailable Advance Directives Directive Yes / No Effective Date File Name No Information Encounters Encounter Description Practice Location Reason(s) For Visit Diagnoses Date Provider Providers Copied on Encounter [facility], [address], [place], [place], [address], [place] tel:[phone] [facility] No Information Sep-0 4-200 3 Fernández OD Jadon. [address] , [address], [place], [address], [place]. tel:[phone] Family History Family Member Type Diagnosis Age At Onset No Information Payers Payer name Insurance type Covered democrat ID Authoriza tion(s) [employer] Plan CI [id number] Social History Type Description Quantity Date Captured Comments Sex Female Smoking Status No Information Chief Complaint And Reason For Visit No Information Reason For Referral Reason For Referral No Information History Of Present Illness Encounter Date Complaint History Of Prese nt Illness No Information Functional Status Date Functional Assessmen t No Information Instructions Date Instruction Additional Infor mation No Information Assessments Type Assessment Date No Information Patient Care Teams Name Effective Dates (start - stop) Status Members No Information
--- OUTSIDE RECORDS SUMMARY | 2024-06-23 12:38 | XMS_ITS | Continuity of Care Document ---
Author Organization [facility] Address [address] [place] [address] Phone Care Team Providers Care Section Leader And Machine Setter Name Role Phone Darrel Chang Unavailable Unavailab le Allergies, Adverse Reactions, Alerts Substance Reaction Status Criticality No Known Allergies Active No Inform ation Medications Medication Instructions Dosage Effective Dates (start - stop) Status Comments MULTIVITAMINS (unknown strength) Not Available - Active ASPIRIN EC (unknown strength) Not Available - Active CALCIUM (unknown strength) Not Available - Active DICLOFENAC POTASSIUM (unknown strength) Not Available - Active FIBER (unknown strength) Not Available - Active GABAPENTIN (unknown strength) Not Available - Active PANTOPRAZOLE SODIUM (unknown strength) Not Available - Active PRESERVISION AREDS (unknown strength) Not Available - Active Procedures Procedure Date X-ray exam knee, 3 views X-ray exam knee, 4+ views BMI Documented Above Normal Limit F/U Pl an Doc [facility] [place] Advance Directives Directive Yes / No Effective Date File Name No Information Encounters Encounter Description Practice Location Reason(s) For Visit Diagnoses Date Provider Providers Copied on Encounter [facility], [address] [facility] [facility], [place], [place], [address], [place] tel:[phone] [facility] No Information 4 Jesse Rojo. [address], [address], [place], [place], [address] , [place]. tel:[phone] Office/outpat ient visit,new, [facility], [address], [place], [place], [address], [place] tel:[phone] [facility] [facility] bilat knees (chief complaint) Pain in right kneePain in left kneePresence of artificial knee joint, bilateral Jesse Rojo. [address], [address], [place], [place], [address] , [place]. tel:[phone] Referring Provider: Darrel Camacho, [address], [place], [address] . tel:[phone] Family History Family Member Type Diagnosis Age At Onset Mother Problem (finding) Hypertension Sister Problem (finding) Alcoholism Mother Problem (finding) Alcoholism Father Problem (finding) Alcoholism Father Problem (finding) Heart Disease Mother Problem (finding) Diabetes Father Problem (finding) Hypertension Immunizations Vaccine Date Status Comments influenza, injectable, quadrivalent, (3 years or older) administered Note: per patient ; Source: Source Unspecified Payers Payer name Insurance type Covered republican ID Authoriza tion(s) [place] Part [place] [id number] PartTec CI [id number] Social History Type Description Quantity Date Captured Comments Alcohol Use Details Unknown Caffeine Use Details Unknown Tobacco Use Status No Information Smoking Status No Information Sex Female Chief Complaint And Reason For Visit No Information Reason For Referral Reason For Referral No Information Plan Of Treatment Date Type Action Status Referral Ordered: Nuclear scan of bone, 3-phase Bilateral knee ordered Referral Ordered: X-ray exam knee, 3 views LT knee ordered Referral Ordered: X-ray exam knee, 4+ views RT knee ordered Future Order: Lab Order C Reacti ve Protein (CRP), Ordered on: Ordered Future Order: Lab Order CBC W/Di ff (CBC w/Diff), Ordered on: Ordered Future Order: Lab Order Sed Rate (Sed Rate), Ordered on: Ordered History Of Present Illness Encounter Date Complaint History Of Prese nt Illness bilat knees Светлана presents t o the office today for evaluation of her bilateral knee pain. She is status post bilateral total knee arthroplasty in 2019, completed 6 weeks apart, the patient does not remember the physician's name. Denies injury, trauma, or fall within the last year. Denies fever, chills, generalized feelings of illness or malaise. She indicates that she is in as much pain now as she was prior to surgery. She completed 2 rounds of physical therapy. She currently has the sensation that something is squeezing or banding around the knee and that she experiences constant tightness. States that she feels better if she drinks a few beers with her bowling team indicating that this seems to reduce the tightness and pain. She has recently been seen by her primary care physician who diagnosed her with autoimmune nondetached tissue disease, she was referred to rheumatology, where she was diagnosed with lupus. She then saw Dr. Barragan at [facility] who indicates that she does not have lupus but may be suffering from some sort of genetic disorder similar. She has been placed on allopurinol and a muscle relaxer which offered her no reduction to her pain. She rates her pain at a 6 out of 10 with a constant tight nature that is worsened with sitting too long or ambulating. She is utilizing rest and stretching for pain control. She is ambulating without assistive device. Functional Status Date Functional Assessmen t No Information Instructions Date Instruction Additional Infor salud Pathophysiology of [place] sensation of tightness after total knee arthroplasty was reviewed in depth. Светлана will be sent for lab work including CRP, sedimentation rate, and CBC with differential. She will be scheduled for three-phase bone scan to evaluate for bone integrity with bone. She may use rest, ice, compression, elevation, wiaq-imo-cezaiia oral and topical analgesics and NSAIDs for pain and inflammation control as needed. Once lab results and bone scan results are obtained she will be contacted to discuss any possible changes to the plan of care. All questions were answered and concerns addressed. She demonstrates appropriate understanding of the diagnosis and plan of care at this time.Dictation completed with PureForge software, grammatical variances and spelling errors may inadvertently occur. Related to Presence of artificial knee joint, bilateral Assessments Type Assessment Date No Information Patient Care Teams Name Effective Dates (start - stop) Status Members No Information
--- OUTSIDE RECORDS SUMMARY | 2024-06-23 12:38 | XMS_ITS | Clinical Summary ---
Author Organization [facility] Address [address] [place] [address] Phone Care Team Providers Care Floor Finisher Helper Name Role Phone Leeanna Salinas MD Primary Care Provider Social History Tobacco Use Types Packs/Day Years Used Date Smoking Tobacco: Never Assessed Comments Unknown Sex and Gender Information Value Date Recorded Sex Assigned at Not on file Legal Sex Female 10:16 PM CDT Gender Identity Not on file Sexual Orientation Not on file Plan of Treatment Health Maintenance Due Date Last Done Comments DEXA Bone Density 1950 Hepatitis C Virus (HCV) Screening 1950 TdaP Immunization 1950 Cologuard 01/01/2002 Immunochemical Fecal Occult Blood 01/01/2002 Mammogram 01/01/2002 Pneumococcal Immunization (5 0+ years) (1 of 1 - PCV) 01/01/2002 Zoster Immunization (1 of 2) 01/01/2002 Influenza Immunization (#1) 2023 SARS-COV-2 Immunization ( - season) 2023 Respiratory Syncytial Virus (RSV) Immunization (Adult) (1 - 1-dose 75+ series) 01/01/2027 Colonoscopy 07/11/2030 07/11/2020 Colorectal Cancer Screening 07/11/2030 07/11/2020 Hepatitis B Immunization Aged Out No longer eligible based on patient's age to complete this topic Meningococcal Immunization (ACWY) Aged Out No longer eligible based on patient's age to complete this topic Rotavirus Immunization Aged Out No lo nger eligible based on patient's age to complete this topic Procedures Procedure Name Priority Date/Time Associated Diagnosis Comments HM COLONOSCOPY Routine 07/11/2020 from Last 3 Months or Most Recently Relevant to Health Maintenance Results * COLONOSCOPY (07/11/2020) Jadon Jeter DO PROCEDURE/MINOR SURGICAL ORDERA BLES Final Result from Last 3 Months or Most Recently Relevant to Health Maintenance Insurance MEDICARE Care Teams Floor Finisher Helper Relationship Specialty Start Date End Date Leeanna Salinas MD PCP - General Family Medicine 06/21/20
--- OUTSIDE RECORDS SUMMARY | 2024-06-23 12:38 | XMS_ITS | Referral Summary ---
Author Organization [facility] Address [address] [place] [address] Care Team Providers Care Metal Tube Cutter Name Role Phone Leeanna Salinas MD Primary Care Provider + Evelyn Faith PT Unavailable Encounters Date Type Department Care Team Description 06/16/2024 10:30 AM GARDEN TRACTOR MECHANIC Therapy [facility] [address] [place] [phone] Evelyn Faith, PT Bilateral primary osteoarthritis of knee (Primary Dx) 06/06/2024 10:30 AM GARDEN TRACTOR MECHANIC Therapy [facility] [address] [place] [phone] Evelyn Faith, PT Bilateral primary osteoarthritis of knee (Primary Dx) 05/31/2024 Plan of Care Documentation [facility] [address] [place] [phone] 05/31/2024 9:15 AM GARDEN TRACTOR MECHANIC Therapy [facility] [address] [place] [phone] Evelyn Faith, PT Bilateral primary osteoarthritis of knee (Primary Dx) from Last 3 Months Allergies No known active allergies Medications diclofenac DR (VOLTAREN) 75 mg EC tabletIndicatio ns:Osteoarthrit is Take 1 tablet (75 mg total) by mouth 2 (two) times a day 3 9 Active rosuvastatin (CRESTOR) 40 mg tabletIndicatio ns:hyperlipidem ia Take 1 tablet (40 mg total) by mouth nightly 1 10/14/[address] (PROTONIX) 20 mg EC tabletIndicatio ns:gerd Take 1 tablet (20 mg total) by mouth daily with lunch 2 9 Active ezetimibe (ZETIA) 10 mg tabletIndicatio ns:hyperlipidem ia Take 1 tablet (10 mg total) by mouth nightly 2 9 Active glucosam-chond- njt2-G-ikby-bor 529-736-43-0.5 mg tabletIndicatio ns:supplement Take 1 tablet by mouth 2 (two) times a day Active calcium-vits J8-D-R7-mineral s 166.75 mg- 166.75 unit capsuleIndicati ons:Prevention of Vitamin D Deficiency Take 1 tablet by mouth 2 (two) times a day Active aspirin 81 mg capsuleIndicati ons:prevention of thrombosis Take 81 mg by mouth nightly Active multivitamin capsuleIndicati ons:Vitamin Deficiency Prevention Take 1 capsule by mouth spindle tester before breakfast Active cholecalciferol (VITAMIN D-3) 2000 unit capsuleIndicati ons:supplement Take 1 capsule (2,000 Units total) by mouth spindle tester before breakfast Active famotidine-Ca carb-mag hydrox (Pepcid [...] 2 (two) times a day Active vit C,U-Yw-yxaac-eddie tein-zeaxan (PreserVision AREDS-2) 250-90-40-1 mg tablet,chewable every 12 hours Active cyclobenzaprine (FLEXERIL) 5 mg tablet Take 1 tablet (5 mg total) by mouth 2 (two) times a day as needed for muscle spasms 60 tablet 2 4 Active Active Problems Problem Noted Date Diagnosed Date 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 Has +PICK UP AND DELIVERY DRIVER antibody, which can be associated with inflammatory [...] (07/01/2019): Added automatically from request for surgery [id number] Assessment & Plan (12/21/2023 7:50 PM CDT): S/p bilateral replacement, has persistent pain. Evaluated by Ortho who specializes in revisions, had bone scan and no issues with the prostheses. Immunizations Immunization Administration Dates Next Due Influenza, Quadrivalent, Hig h Dose, Preservative Free, Intrr 12/19/2021 Influenza, Quadrivalent, Rec ombinant, Egg Free, Preservative Free, Intramuscular 02/25/2021,12/29/2018 Influenza, Quadrivalent, Split, Intramuscular Influenza, Quadrivalent, Spl it, Preservative Free, Intramuscular 02/02/2020,01/25/2018 Pneumococcal Conjugate Pcv20 04/09/2023 Social History Tobacco Use Types Packs/Day Years [...] when you are drinking? 1 or 2 04/03/202 4 Q3: How often do you have si x or more drinks on one occasion? Never 07/22/2023 Comments No Sex and Gender Information Value Date Recorded Sex Assigned at Not on file Legal Sex Female 8:46 PM GARDEN TRACTOR MECHANIC Gender Identity Not on file Sexual Orientation [...] 12/17/2023 11:35 AM CDT Plan of Treatment Not on file Procedures Procedure Name Priority Date/Time Associated Diagnosis Comments SCREENING MAMMOGRAM BILATERAL W ALEN Schedule Routine, Read Routine (OP Routine) 03/09/2024 11:01 AM GARDEN TRACTOR MECHANIC Screening mammogram, encounter for SERUM HEPATITIS C AB Routine 08/23/2015 3:15 AM CDT from Last 3 Months or Most Recently Relevant to Health Maintenance Results * Screening Mammogram Bilateral W Alen (03/09/2024 11:01 AM GARDEN TRACTOR MECHANIC) Anatomical Region Laterality Modality Breast Bilateral Mammography Narrative 03/10/2024 9:49 AM GARDEN TRACTOR MECHANIC Mammogram Technique: Bilateral Digital Breast Tomosynthesis, Bilateral C-view 2D Screening mammogram. Views obtained: bilateral craniocaudal and bilateral mediolateral oblique. Computer Aided Detection was performed. Mammogram Findings: The present examination has been compared to prior imaging studies performed at [facility] on 10/29/2020, 01/27/2022 and 03/03/2023. There are [...] compared to prior imaging studies performed at [facility] on 10/29/2020, 01/27/2022 and 03/03/2023. There are [...] to request sample to be sent to [facility] for Hepatitis C Virus (HCV) RNA Detection and Quantitation by Real-Time Reverse Matchbook Assembler-PCR (RT-PCR). Current interpretive data was last revised on 2011 us Historical Provider LAB BLOOD ORDERABLES Ashlee ingram Result HISTORICAL RESULTS from Last 3 Months or Most Recently Relevant to Health Maintenance Insurance MEDICARE Market Wire MEDICARE Market [employer] MEDICARE [employer] Care Teams Metal Tube Cutter Relationship Specialty Start Date End Date Leeanna Salinas MD PCP - General 08/28/17 Evelyn Faith, PT [address] [address] Physical Therapist Physical Therapy 05/23/24
--- OUTSIDE RECORDS SUMMARY | 2024-06-23 12:38 | XMS_ITS | Referral Summary ---
Author Organization [facility] Address [address] [place] [address] Care Team Providers Care Glazier Helper Name Role Phone Leeanna Salinas MD Primary Care Provider [phone] Source Comments [facility],non-owned Affiliates and Associated Physician Practices is amultiple site organization consisting of ambulatory clinics and hospital sitesin [place], [place], [place] and [place]. This disclosure is being madepursuant to the Care Everywhere program and may not contain all information available regarding this patient. Last updated 18.[facility] Social History Tobacco Use Types Packs/Day Years Used Date Smoking Tobacco: Never Assessed Sex and Gender Information Value Date Recorded Sex Assigned at Not on file Gender Identity Not on file Sexual Orientation Not on file Plan of Treatment Not on file Care Teams Glazier Helper Relationship Specialty Start Date End Date Leeanna Salinas MD [address] [place] [address] [phone] (work) PCP - General 07/12/20
== END 2024-06-23 11:00 | disposition home or self-care (01) ==
LOC: ANHIMG 11:00
PROVIDERS: PCP Family Medicine; Visit Provider Student in an Organized Health Care Education/Training Program
DX: M81.0 Age-related osteoporosis without current pathological fracture (principal); M85.89 Other specified disorders of bone density and structure, multiple sites; Z78.0 Asymptomatic menopausal state
CPT/HCPCS: 77080